=== PATIENT | male | born 1995 | race Caucasian/White ===

== ENCOUNTER 2016-06-13 20:13 | Inpatient (IN) | payer BC ==
[~2016-06-13] VITALS: Ht 170.2 cm; Wt 55.8 kg
[~2016-06-13 20:13] MED LIST: Alfentanil 2ml Inj ONE; Dexamethasone 4mg/ml vial ONE; Glycopyrrolate 0.2mg/ml 1ml Vial ONE; LR 1000ml ONE; Lidocaine 1% MPF 10mg/ml 5ml ONE; Midazolam 2mg/2ml Inj ONE; NS Irrig 1000ml ONE; Neostigmine 1mg/ml 10ml Inj ONE; Propofol 10mg/ml 20ml IV ONE; Sterile Water Irrig 1000ml IRRIG ONE; Zemuron 50mg/5ml Inj IV ONE
[2016-06-13] MEDS ORDERED: NKM (20:35)
[2016-06-13] MEDS ORDERED: Morphine Sulfate 4mg/ml Inj IVP ONE (21:00)
[2016-06-13] MEDS ORDERED: Ampicillin/Sulbactam Sod 3 GM in NS 110 ML IVPB ONE (21:00)
[2016-06-13] MEDS ORDERED: Unasyn 3gm Inj ONE (21:23)
[2016-06-13 21:38] LABS: APPEARANCE,URINE CLEAR; BASOPHILS % (AUTO) 0.5 % (0.0-2.0); EOSINOPHILS % (AUTO) 0.1 % (0.0-3.0); KETONES,URINE NEGATIVE (NEGATIVE); LEUKOCYTE ESTERASE ,URINE 1+ (NEGATIVE); LYMPHOCYTES % (AUTO) 9.8 % (20.0-45.0); MEAN CORPUSCULAR HEMOGLOBIN 31.6 PG (27.0-31.0); MEAN CORPUSCULAR HGB CONC 35.4 G/DL (32.0-36.0); MEAN CORPUSCULAR VOLUME 89 FL (80-99); MEAN PLATELET VOLUME 7.9 FL (6.5-10.1); MONOCYTES % (AUTO) 5.7 % (1.0-10.0); NEUTROPHILS % (AUTO) 83.9 % (45.0-75.0); NITRITE,URINE NEGATIVE (NEGATIVE); PH,URINE 6 (4.5-8.0); PLATELET COUNT 206 K/UL (150-450); PROTEIN,URINE NEGATIVE (NEGATIVE); RED BLOOD COUNT 5.65 M/UL (4.70-6.10); RED CELL DISTRIBUTION WIDTH 10.5 % (11.6-14.8); UROBILINOGEN,URINE NORMAL MG/DL (0.0-1.0); WHITE BLOOD COUNT 13.6 K/UL (4.8-10.8)
[2016-06-13 21:48] LABS: BACTERIA,URINE FEW /HPF; RBC,URINE 0-2 /HPF (0 - 0); WBC,URINE 0-2 /HPF (0 - 0)
[2016-06-13 21:50] LABS: INR 1.1 (0.9-1.1); PROTHROMBIN TIME 10.7 SEC (9.30-11.50)
[2016-06-13 21:58] LABS: ALANINE AMINOTRANSFERASE 18 U/L (3-41); ALBUMIN/GLOBULIN RATIO 1.7 (1.0-2.7); ANION GAP 18 (5-15); ASPARTATE AMINO TRANSFERASE 43 U/L (5-40); CALCIUM 9.7 mg/dL (8.6-10.2); CARBON DIOXIDE 24 mEQ/L (20-30); CHLORIDE 97 mEQ/L (98-107); CREATININE 1.1 mg/dL (0.7-1.2); GLOMERULAR FILTRATION RATE > 60 mL/min (>60); HEMOLYSIS 10; LIPASE 19 U/L (< 60); SODIUM 139 mEQ/L (135-145); TOTAL PROTEIN 8.1 g/dL (6.6-8.7)
[2016-06-13 22:18] LABS: BILIRUBIN,DIRECT 0.3 mg/dL (0.1-0.3)
--- NOTE | 2016-06-13 22:43 | Emergency Room Report ---
History of Present Illness General Chief Complaint: Abdominal Pain Source: Patient Present Illness HPI Patient is a 21-year-old male presented after increased abdominal pain for the past few days. The patient initially had pain to the periumbilical area which subsequently migrated to his right lower quadrant. Patient had been having constant symptoms which are worse with movements and deep breath. The patient denied any head fever. He had not been having vomiting or diarrhea. Pain had subsequently worsened and was severe in nature. Allergies: Coded Allergies: Cultivated Oat Pollen (Unverified Allergy, Unknown, 06/13/16) Uncoded Allergies: POLLENS (Allergy, Unknown, 06/13/16) Patient History Past Medical History: see triage record Reviewed Nursing Documentation: PMH: Agreed, PSxH: Agreed Nursing Documentation-PMH Hx Asthma: Yes Review of Systems All Other Systems: negative except mentioned in HPI Physical Exam Vital Signs Date Time Temp Pulse Resp B/P Pulse Ox O2 Delivery O2 Flow Rate FiO2 06/13/16 20:30 99.0 91 16 115/71 99 Room Air Sp02 EP Interpretation: reviewed, normal General Appearance: normal inspection, alert, moderate distress Head: atraumatic ENT: normal ENT inspection, hearing grossly normal, normal voice Neck: normal inspection, full range of motion, supple, no bony tend Respiratory: normal inspection, lungs clear, normal breath sounds, no respiratory distress, no retraction, no wheezing Cardiovascular #1: regular rate, rhythm, no edema Gastrointestinal: no guarding, no hernia, guarding, rebound, tenderness Genitourinary: no CVA tenderness Musculoskeletal: normal inspection, back normal, normal range of motion Neurologic: normal inspection, alert, oriented x3, responsive, supervisor records change III-XII nml as tested, speech normal Psychiatric: normal inspection, judgement/insight normal, mood/affect normal Skin: normal inspection, normal color, no rash Medical Decision Making Diagnostic Impression: Primary Impression: Abdominal pain Additional Impression: Appendicitis ER Course Patient presented for abdominal pain. Differential diagnoses included ischemic bowel, appendicitis, perforated viscus, abdominal aortic aneurysm, inferior myocardial infarction, viral gastroenteritis Because of complexity of patient's case laboratory testing and imaging studies were ordered. I laboratory testing was notable for elevated white blood count. Patient's exam is consistent with surgical abdomen. was contacted for surgical management is on his contacted for inpatient admission. Patient was given IV Unasyn and as well as IV fluids. The patient is also noted to have elevation of his bilirubin. Per mother there is a family history of Gilbert's disease and this may be related to this elevation. Labs Test 06/13/16 21:17 White Blood Count 13.6 K/UL (4.8-10.8) Red Blood Count 5.65 M/UL (4.70-6.10) Hemoglobin 17.8 G/DL (14.2-18.0) Hematocrit 50.3 % (42.0-52.0) Mean Corpuscular Volume 89 FL (80-99) Mean Corpuscular Hemoglobin 31.6 PG (27.0-31.0) Mean Corpuscular Hemoglobin Concent 35.4 G/DL (32.0-36.0) Red Cell Distribution Width 10.5 % (11.6-14.8) Platelet Count 206 K/UL (150-450) Mean Platelet Volume 7.9 FL (6.5-10.1) Neutrophils (%) (Auto) 83.9 % (45.0-75.0) Lymphocytes (%) (Auto) 9.8 % (20.0-45.0) Monocytes (%) (Auto) 5.7 % (1.0-10.0) Eosinophils (%) (Auto) 0.1 % (0.0-3.0) Basophils (%) (Auto) 0.5 % (0.0-2.0) Prothrombin Time 10.7 SEC (9.30-11.50) Prothromb Time International Ratio 1.1 (0.9-1.1) Activated Partial Thromboplast Time 29 SEC (23-33) Urine Color Pale yellow Urine Appearance Clear Urine pH 6 (4.5-8.0) Urine Specific [place] 1.015 (1.005-1.035) Urine Protein Negative (NEGATIVE) Urine Glucose (UA) Negative (NEGATIVE) Urine Ketones Negative (NEGATIVE) Urine Occult Blood 1+ (NEGATIVE) Urine Nitrite Negative (NEGATIVE) Urine Bilirubin Negative (NEGATIVE) Urine Urobilinogen Normal MG/DL (0.0-1.0) Urine Leukocyte Esterase 1+ (NEGATIVE) Urine RBC 0-2 /HPF (0 - 0) Urine WBC 0-2 /HPF (0 - 0) Urine Squamous Epithelial Cells None /LPF (NONE/OCC) Urine Bacteria Few /HPF (NONE) Sodium Level 139 mEQ/L (135-145) Potassium Level 4.0 mEQ/L (3.4-4.9) Chloride Level 97 mEQ/L (98-107) Carbon Dioxide Level 24 mEQ/L (20-30) Anion Gap 18 (5-15) Blood Urea Nitrogen 17 mg/dL (7-23) Creatinine 1.1 mg/dL (0.7-1.2) Estimat Glomerular Filtration Rate > 60 mL/min (>60) Glucose Level 104 mg/dL (74-106) Calcium Level 9.7 mg/dL (8.6-10.2) Total Bilirubin 3.2 mg/dL (0.0-1.2) Direct Bilirubin 0.3 mg/dL (0.1-0.3) Aspartate Amino Transf (AST/SGOT) 43 U/L (5-40) Alanine Aminotransferase (ALT/SGPT) 18 U/L (3-41) Alkaline Phosphatase 81 U/L (40-129) Total Protein 8.1 g/dL (6.6-8.7) Albumin 5.1 g/dL (3.5-5.2) Globulin 3.0 g/dL Albumin/Globulin Ratio 1.7 (1.0-2.7) Lipase 19 U/L (< 60) Last Vital Signs Date Time Temp Pulse Resp B/P Pulse Ox O2 Delivery O2 Flow Rate FiO2 06/13/16 20:30 99.0 91 16 115/71 99 Room Air Status: unchanged Disposition: ADMITTED INPATIENT Condition: Serious Referrals: NON PHYSICIAN (PCP) Norman Deleon Jun 13, 2016 22:43
[2016-06-13 22:55] VITALS: BP 118/74
--- NOTE | 2016-06-13 23:33 | Pre-Procedure Note/Attestation ---
Pre-Procedure Note/Attestation Complete Prior to Procedure Planned Procedure: not applicable Procedure Narrative: Laparoscopic appendectomy possible open appendectomy Indications for Procedure Pre-Operative Diagnosis: acute appendicitis Attestation I attest that I discussed the nature of the procedure; its benefits; risks and complications; and alternatives (and the risks and benefits of such alternatives ), prior to the procedure, with the patient (or the patient's legal veterans contact representative). I attest that, if there was a reasonable possibility of needing a blood transfusion, the patient (or the patient's legal veterans contact representative) was given the [facility] standardized written summary, pursuant to the Wade Trey Blood Safety Act ([place] Health and Safety Code # 1645, as amended). I attest that I re-evaluated the patient just prior to the surgery and that there has been no change in the patient's H&P, except as documented below: FRANCISCO JAVIER REGAN Jun 13, 2016 23:33
[2016-06-13] MEDS ORDERED: Bupivacaine 0.25% Inj 30ml INJ ONE ×2 (23:38→23:46)
[2016-06-13] MEDS ORDERED: Albuterol ud Inhalation ONE (23:40)
[2016-06-13] MEDS ORDERED: Bupivacaine w/Epi 0.25% 30ml Vial INJ ONE (23:46)
[2016-06-13] MEDS ORDERED: Bacitracin 50000 Units Vial ONE (23:46)
[2016-06-13] MEDS ORDERED: fentaNYL 100 mcg/2 mL IV ONE (23:59)
[2016-06-14] VITALS (19 sets, daily range): BP systolic 98–129; BP diastolic 34–78
[2016-06-14] MEDS ORDERED: LR 1000ml 1,000 ML IVLG SCH (00:02)
--- NOTE | 2016-06-14 00:02 | Anethesia Preoperative Eval ---
Anesthesia Pre-op PMH/ROS General Date of Evaluation: Jun 14, 2016 Time of Evaluation: 00:01 Anesthesiologist: Aaron ASA Score: ASA 1 - Emergency Mallampati Score Class I : Soft palate, uvula, fauces, pillars visible Class II: Soft palate, uvula, fauces visible Class III: Soft palate, base of uvula visible Class IV: Only hard plate visible Mallampati Classification: Class I Surgeon: John Diagnosis: Acute Appendicitis Surgical Procedure: Laparoscopic Appendectomy Anesthesia History: none Family History: no anesthesia problems Allergies: Coded Allergies: Cultivated Oat Pollen (Unverified Allergy, Unknown, 06/13/16) Uncoded Allergies: POLLENS (Allergy, Unknown, 06/13/16) Medications: see eMAR Anesthesia Pre-op Phys. Exam Physician Exam Last Vital Signs Date Time Temp Pulse Resp B/P Pulse Ox O2 Delivery O2 Flow Rate FiO2 06/13/16 23:08 98.9 88 15 118/74 98 Room Air Constitutional: NAD Neurologic: CN 2-12 intact Cardiovascular: RRR Respiratory: CTA Gastrointestinal: S/NT/ND Airway Exam Mallampati Score: Class I MO: full ROM: full Teeth: intact Anesthesia Pre-op A/P Labs Hematology Test 06/13/16 21:17 White Blood Count 13.6 K/UL (4.8-10.8) H Red Blood Count 5.65 M/UL (4.70-6.10) Hemoglobin 17.8 G/DL (14.2-18.0) Hematocrit 50.3 % (42.0-52.0) Mean Corpuscular Volume 89 FL (80-99) Mean Corpuscular Hemoglobin 31.6 PG (27.0-31.0) H Mean Corpuscular Hemoglobin Concent 35.4 G/DL (32.0-36.0) Red Cell Distribution Width 10.5 % (11.6-14.8) L Platelet Count 206 K/UL (150-450) Mean Platelet Volume 7.9 FL (6.5-10.1) Neutrophils (%) (Auto) 83.9 % (45.0-75.0) H Lymphocytes (%) (Auto) 9.8 % (20.0-45.0) L Monocytes (%) (Auto) 5.7 % (1.0-10.0) Eosinophils (%) (Auto) 0.1 % (0.0-3.0) Basophils (%) (Auto) 0.5 % (0.0-2.0) Coagulation Test 06/13/16 21:17 Prothrombin Time 10.7 SEC (9.30-11.50) Prothromb Time International Ratio 1.1 (0.9-1.1) Activated Partial Thromboplast Time 29 SEC (23-33) Chemistry Test 06/13/16 21:17 Sodium Level 139 mEQ/L (135-145) Potassium Level 4.0 mEQ/L (3.4-4.9) Chloride Level 97 mEQ/L (98-107) L Carbon Dioxide Level 24 mEQ/L (20-30) Anion Gap 18 (5-15) H Blood Urea Nitrogen 17 mg/dL (7-23) Creatinine 1.1 mg/dL (0.7-1.2) Estimat Glomerular Filtration Rate > 60 mL/min (>60) Glucose Level 104 mg/dL (74-106) Calcium Level 9.7 mg/dL (8.6-10.2) Total Bilirubin 3.2 mg/dL (0.0-1.2) H Direct Bilirubin 0.3 mg/dL (0.1-0.3) Aspartate Amino Transf (AST/SGOT) 43 U/L (5-40) H Alanine Aminotransferase (ALT/SGPT) 18 U/L (3-41) Alkaline Phosphatase 81 U/L (40-129) Total Protein 8.1 g/dL (6.6-8.7) Albumin 5.1 g/dL (3.5-5.2) Globulin 3.0 g/dL Albumin/Globulin Ratio 1.7 (1.0-2.7) Lipase 19 U/L (< 60) Risk Assessment & Plan Assessment: 1E Plan: GA, Glidescope, BIS Status Change Before Surgery: No Pre-Antibiotics Dru Gram Ancef IV Given Within 1 Hr of Incision: Yes Time Given: 00:16 Jim Walker MD Jun 14, 2016 00:02
--- NOTE | 2016-06-14 00:05 | Immediate Post-Op Evaluation ---
Immediate Post-Op Evalulation Immediate Post-Op Evalulation Procedure: Laparoscopic Appendectomy Date of Evaluation: Jun 14, 2016 Time of Evaluation: 01:39 IV Fluids: 900 LR Blood Products: 0 Estimated Blood Loss: 7 Urinary Output: 200 Blood Pressure Systolic: 127 Blood Pressure Diastolic: 51 Pulse Rate: 72 Respiratory Rate: 16 O2 Sat by Pulse Oximetry: 96 Temperature (Fahrenheit): 98.6 Pain Score (1-10): 2 Nausea: No Vomiting: No Complications 0 Patient Status: awake, reacts, patent, extubated, none Hydration Status: adequate Dru Gram Ancef iv Given Within 1 Hr of Incision: Yes Time Given: 00:16 Jim Walker MD Jun 14, 2016 00:05
--- NOTE | 2016-06-14 00:05 | 48 Hour Post Anesthesia Eval ---
Post Anesthesia Evaluation Procedure: Laparoscopic Appendectomy Date of Evaluation: Jun 14, 2016 Time of Evaluation: 03:16 Blood Pressure Systolic: 116 0: 54 Pulse Rate: 76 Respiratory Rate: 18 Temperature (Fahrenheit): 98.6 O2 Sat by Pulse Oximetry: 100 Airway: patent Nausea: No Vomiting: No Pain Intensity: 2 Hydration Status: adequate Cardiopulmonary Status: Stable Mental Status/LOC: patient returned to baseline Follow-up Care/Observations: 0 Post-Anesthesia Complications: 0 Follow-up care needed: N/A Jim Walker MD Jun 14, 2016 00:05
[2016-06-14] MEDS ORDERED: Ketorolac 60mg Inj IV PRN (00:15)
[2016-06-14] MEDS ORDERED: DiphenhydrAMINE 50mg/ml Inj IVP PRN (00:15)
[2016-06-14] MEDS ORDERED: Norco 5mg/325mg tab ORAL PRN (00:15)
[2016-06-14] MEDS ORDERED: LORazepam Inj 2mg/ml 1ml IV PRN (00:15)
[2016-06-14] MEDS ORDERED: Midazolam 2mg/2ml Inj IVP PRN (00:15)
[2016-06-14] MEDS ORDERED: Atropine Inj 1mg/10ml Syr IV PRN (00:15)
[2016-06-14] MEDS ORDERED: Labetalol 5mg/ml 20ml vial IV PRN (00:15)
[2016-06-14] MEDS ORDERED: Metoclopramide 10mg/2ml Inj IVP PRN (00:15)
[2016-06-14] MEDS ORDERED: Norco 7.5mg/325mg tab ORAL PRN (00:15)
[2016-06-14] MEDS ORDERED: Hydromorphone 0.5mg/0.5ml inj IVP PRN (00:15)
[2016-06-14] MEDS ORDERED: Ketorolac 30mg Inj IV PRN (00:15)
[2016-06-14] MEDS ORDERED: Oxycodone/Acetaminophen 5-325 ORAL PRN (00:15)
[2016-06-14] MEDS ORDERED: Meperidine 25mg/ml Inj IV PRN (00:15)
[2016-06-14] MEDS ORDERED: NS Irrig 1000ml IRRIG ONE (00:35)
[2016-06-14] MEDS ORDERED: D5 1/2NS w/KCl 20mEq 1,000 ML IV SCH (01:18)
--- NOTE | 2016-06-14 01:18 | Brief Operative Note ---
Immediate Post Operative Note Operative Note Pre-op Diagnosis: acute appendicitis Post-op Diagnosis: same as pre-op Findings: consistent w/pre-op dx studies Surgeon: Mj Flight Engineer Manager: none Anesthesiologist: Dr. Renner Anesthesia: general Specimen: yes Complications: none Condition: stable Estimated Blood Loss: minimal Drains: none Implant(s) used?: No FRANCISCO JAVIER REGAN Jun 14, 2016 01:18
[2016-06-14] MEDS ORDERED: Acetaminophen 650 MG SUPP RECTAL PRN ×2 (01:30→11:20)
[2016-06-14] MEDS ORDERED: HYDROmorphone 1mg/ml Carpuject IVP PRN ×2 (01:30→11:20)
[2016-06-14] MEDS: fentaNYL 100 mcg/2 mL IV PRN ×2 (02:00→02:30)
[2016-06-14] MEDS ORDERED: Albuterol ud Inhalation HHN SCH (02:00)
[2016-06-14] MEDS ORDERED: Zosyn 3.375gm inj ONE (02:18)
[2016-06-14] MEDS ORDERED: Metoclopramide 10mg/2ml Inj IM SCH (06:00)
[2016-06-14] MEDS ORDERED: Piperacillin/Tazobactam 3.375 GM in D5W 110 ML IVPB SCH (06:00)
[2016-06-14 07:59] LABS: MEAN CORPUSCULAR HEMOGLOBIN 31.8 PG (27.0-31.0); MEAN CORPUSCULAR HGB CONC 35.7 G/DL (32.0-36.0); MEAN CORPUSCULAR VOLUME 89 FL (80-99); MEAN PLATELET VOLUME 8.2 FL (6.5-10.1); PLATELET COUNT 195 K/UL (150-450); RED BLOOD COUNT 5.25 M/UL (4.70-6.10); RED CELL DISTRIBUTION WIDTH 10.6 % (11.6-14.8)
--- NOTE | 2016-06-14 08:18 | Consultation ---
DATE OF CONSULTATION: 06/13/2016 PREOPERATIVE CONSULTATION: REQUESTING PHYSICIAN: Bebeto Lopez M.D. REASON FOR CONSULTATION: Abdominal pain. HISTORY OF PRESENT ILLNESS: This is a 21-year-old male, who presented to emergency room complaining of abdominal pain since yesterday noon. He stated the pain initially was all over the abdomen, but later it localized at right lower quadrant. This pain has been associated with nausea, but no vomiting. He denies any fever, cough, dysuria, or frequency. One year ago, he had abdominal pain, which was diagnosed with some kind of bowel obstruction. PAST MEDICAL HISTORY: He denies allergies, diabetes, hypertension, cardiac, and renal diseases. He had a history of asthma. PAST SURGICAL HISTORY: None. MEDICATIONS: Inhaler. SOCIAL HISTORY: This is a 21-year-old male, single without children. He is a student. Denies smoking and drinks occasionally. REVIEW OF SYSTEMS: Noncontributory. PHYSICAL EXAMINATION: GENERAL: The patient appeared to be a well-developed, well-nourished, 21-year-old male, lying on the gurney, complaining of abdominal pain. HEENT: Head is normocephalic and atraumatic. Eyes, pupils are equal, round, and reactive to light. Mouth is clear. NECK: There is no palpable thyromegaly or adenopathy. CHEST: Clear to auscultation and percussion. HEART: There is no gallop or murmur. He has a split of the S2. ABDOMEN: Soft and flat with tenderness, rebound tenderness, and guarding at right lower quadrant. There is no palpable organomegaly. Bowel sounds are audible. GENITAL: Normal. EXTREMITIES: Normal. LABORATORY DATA: CBC has shown a WBC of 13,600 with the left shift. ASSESSMENT: Acute appendicitis. PLAN: After rehydration, the patient will undergo a laparoscopy appendectomy and possible open appendectomy. The risks and benefits have been explained. He understood and will leonel the consent form. Bebeto Lopez M.D. DR: BRIE JOB#: [id number] CC:
[2016-06-14 08:23] LABS: CHOLESTEROL/HDL RATIO 2.6 (3.3-4.4); TROPONIN I < 0.30 ng/mL (<=0.30)
[2016-06-14 08:26] LABS: ANION GAP 17 (5-15); CALCIUM 8.8 mg/dL (8.6-10.2); CARBON DIOXIDE 23 mEQ/L (20-30); CHLORIDE 97 mEQ/L (98-107); CREATININE 1.2 mg/dL (0.7-1.2); GLOMERULAR FILTRATION RATE > 60 mL/min (>60); HEMOLYSIS 11; SODIUM 137 mEQ/L (135-145)
[2016-06-14 08:27] LABS: THYROID STIMULATING HORMONE 1.36 uIU/mL (0.300-4.500)
[2016-06-14 08:39] LABS: HEMOGLOBIN A1C 4.8 % (< 6.0)
[2016-06-14] MEDS ORDERED: Pantoprazole Inj IVP SCH (09:00)
[2016-06-14] MEDS ORDERED: Albuterol ud Inhalation HHN PRN (09:00)
--- NOTE | 2016-06-14 09:07 | Consultation ---
History of Present Illness General Date patient seen: Jun 14, 2016 Time patient seen: 08:30 Chief Complaint: Abdominal Pain Referring physician: dr Patterson Reason for Consultation: hypoxemia Present Illness HPI 21 y/old male presented to ED with acute abdominal oarntes CT A/P done and patient was subsequently diagnosed with acute appendicitis surgeon seen the patient on urgent basis and patient undergone lap appy last night, 06/13 this am patient developed episode of hypoxemia, 88% on RA and below placed on supplemental oxygen was coughing, phlegm f blood tinged no fever, + leukocytosis no tachycardia, no tachypnea + diaphoresis last night denies recent weight loss, perspirations, had respiratory problems for few months, was diagnosed with mild asthma, apparently of allergic component under care of dr Benavides ( [facility]) and currently undergoing allergy demonetization shots reports wheezing after exercise, denies wheezing now was given Breo to use, not using regularly denies chest pain, palpitations, dizziness denies recent traveling denies recent contacts with sick people recent PPD few years ago negative Allergies: Coded Allergies: Cultivated Oat Pollen (Unverified Allergy, Unknown, 06/13/16) Uncoded Allergies: POLLENS (Allergy, Unknown, 06/13/16) Medication History Scheduled No Known Medications* (NKM - No Known Medications*), 0 ., (Reported) Patient History Healthcare decision maker Sabine Huynh Resuscitation status Full Code Advanced Directive on File Review of Systems Constitutional: Reports: no symptoms Eye: Reports: no symptoms ENT: Reports: no symptoms Respiratory: Reports: see HPI Cardiovascular: Reports: no symptoms Gastrointestinal: Reports: see HPI Genitourinary: Reports: no symptoms Musculoskeletal: Reports: no symptoms Skin: Reports: no symptoms Psychiatric: Reports: no symptoms Neurological: Reports: other Endocrine: Reports: no symptoms Hematologic/Lymphatic: Reports: no symptoms Physical Exam General Appearance: other - A/A/O x 3 thin young male in mild distress Lines, tubes and drains: peripheral HEENT: normocephalic, atraumatic, anicteric, other - VM on Neck: non-tender, supple, normal inspection Respiratory/Chest: chest wall non-tender, respiratory distress - mild Cardiovascular/Chest: normal rate, regular rhythm, no JVD Abdomen: normal bowel sounds, soft - mild tenderness on palpation aroudn surgical sites Extremities: normal range of motion, non-tender, no calf tenderness Skin Exam: warm/dry Neurologic: testing tech II-XII grossly normal, no motor/sensory deficits, alert, oriented x 3, responsive Musculoskeletal: normal muscle bulk Last 24 Hour Vital Signs Date Time Temp Pulse Resp B/P Pulse Ox O2 Delivery O2 Flow Rate FiO2 06/14/16 06:23 97.4 18 18 114/54 94 Room Air 06/14/16 06:09 Venturi Mask 8.0 40 06/14/16 06:08 93 Venturi Mask 8.0 40 06/14/16 05:44 97.7 97 21 107/59 96 Nasal Cannula 5.0 06/14/16 05:00 Nasal Cannula 6.0 06/14/16 04:57 91 18 97 Nasal Cannula 6.0 06/14/16 04:51 81 18 94 Nasal Cannula 6.0 06/14/16 04:48 91 18 Nasal Cannula 6.0 06/14/16 04:00 98.4 90 19 110/70 95 Nasal Cannula 06/14/16 04:00 93 Nasal Cannula 6.0 06/14/16 03:35 98.2 94 18 103/72 90 Nasal Cannula 06/14/16 03:05 85 22 110/50 96 Nasal Cannula 3.0 06/14/16 03:04 98.8 06/14/16 03:04 98.8 06/14/16 02:55 98.8 88 23 106/52 96 Nasal Cannula 3.0 06/14/16 02:45 92 26 108/45 95 Nasal Cannula 3.0 06/14/16 02:30 122 35 123/56 90 Simple Mask 15.0 06/14/16 02:10 100 33 129/59 98 Simple Mask 15.0 06/14/16 02:00 84 33 122/57 98 Simple Mask 15.0 06/14/16 01:50 90 31 120/46 94 Simple Mask 15.0 06/14/16 01:35 106 32 101/47 87 Simple Mask 15.0 06/14/16 01:32 76 18 100 06/14/16 01:31 72 16 96 06/14/16 01:28 98.4 103 36 126/51 85 Simple Mask 15.0 06/14/16 00:05 98.9 85 15 123/78 98 Room Air 06/13/16 23:08 98.9 88 15 118/74 98 Room Air 06/13/16 22:55 98.9 88 15 118/74 98 Room Air 06/13/16 22:00 98.9 06/13/16 20:30 99.0 91 16 115/71 99 Room Air Intake and Output 06/13/16 06/14/16 19:00 07:00 Intake Total 210 ml Balance 210 ml Intake IV Total 210 ml Laboratory Tests Test 06/13/16 21:17 06/14/16 07:20 White Blood Count 13.6 K/UL (4.8-10.8) H 13.0 K/UL (4.8-10.8) H Red Blood Count 5.65 M/UL (4.70-6.10) 5.25 M/UL (4.70-6.10) Hemoglobin 17.8 G/DL (14.2-18.0) 16.7 G/DL (14.2-18.0) Hematocrit 50.3 % (42.0-52.0) 46.8 % (42.0-52.0) Mean Corpuscular Volume 89 FL (80-99) 89 FL (80-99) Mean Corpuscular Hemoglobin 31.6 PG (27.0-31.0) H 31.8 PG (27.0-31.0) H Mean Corpuscular Hemoglobin Concent 35.4 G/DL (32.0-36.0) 35.7 G/DL (32.0-36.0) Red Cell Distribution Width 10.5 % (11.6-14.8) L 10.6 % (11.6-14.8) L Platelet Count 206 K/UL (150-450) 195 K/UL (150-450) Mean Platelet Volume 7.9 FL (6.5-10.1) 8.2 FL (6.5-10.1) Neutrophils (%) (Auto) 83.9 % (45.0-75.0) H % (45.0-75.0) Lymphocytes (%) (Auto) 9.8 % (20.0-45.0) L % (20.0-45.0) Monocytes (%) (Auto) 5.7 % (1.0-10.0) % (1.0-10.0) Eosinophils (%) (Auto) 0.1 % (0.0-3.0) % (0.0-3.0) Basophils (%) (Auto) 0.5 % (0.0-2.0) % (0.0-2.0) Prothrombin Time 10.7 SEC (9.30-11.50) Prothromb Time International Ratio 1.1 (0.9-1.1) Activated Partial Thromboplast Time 29 SEC (23-33) Urine Color Pale yellow Urine Appearance Clear Urine pH 6 (4.5-8.0) Urine Specific [place] 1.015 (1.005-1.035) Urine Protein Negative (NEGATIVE) Urine Glucose (UA) Negative (NEGATIVE) Urine Ketones Negative (NEGATIVE) Urine Occult Blood 1+ (NEGATIVE) H Urine Nitrite Negative (NEGATIVE) Urine Bilirubin Negative (NEGATIVE) Urine Urobilinogen Normal MG/DL (0.0-1.0) Urine Leukocyte Esterase 1+ (NEGATIVE) H Urine RBC 0-2 /HPF (0 - 0) H Urine WBC 0-2 /HPF (0 - 0) Urine Squamous Epithelial Cells None /LPF (NONE/OCC) Urine Bacteria Few /HPF (NONE) Sodium Level 139 mEQ/L (135-145) 137 mEQ/L (135-145) Potassium Level 4.0 mEQ/L (3.4-4.9) 5.0 mEQ/L (3.4-4.9) H Chloride Level 97 mEQ/L (98-107) L 97 mEQ/L (98-107) L Carbon Dioxide Level 24 mEQ/L (20-30) 23 mEQ/L (20-30) Anion Gap 18 (5-15) H 17 (5-15) H Blood Urea Nitrogen 17 mg/dL (7-23) 18 mg/dL (7-23) Creatinine 1.1 mg/dL (0.7-1.2) 1.2 mg/dL (0.7-1.2) Estimat Glomerular Filtration Rate > 60 mL/min (>60) > 60 mL/min (>60) Glucose Level 104 mg/dL (74-106) 184 mg/dL (74-106) H Calcium Level 9.7 mg/dL (8.6-10.2) 8.8 mg/dL (8.6-10.2) Total Bilirubin 3.2 mg/dL (0.0-1.2) H Direct Bilirubin 0.3 mg/dL (0.1-0.3) Aspartate Amino Transf (AST/SGOT) 43 U/L (5-40) H Alanine Aminotransferase (ALT/SGPT) 18 U/L (3-41) Alkaline Phosphatase 81 U/L (40-129) Total Protein 8.1 g/dL (6.6-8.7) Albumin 5.1 g/dL (3.5-5.2) Globulin 3.0 g/dL Albumin/Globulin Ratio 1.7 (1.0-2.7) Lipase 19 U/L (< 60) Neutrophils % (Manual) Pending Lymphocytes % (Manual) Pending Platelet Estimate Pending Platelet Morphology Pending D-Dimer 3637 ng/mL (<500) H Hemoglobin A1c 4.8 % (< 6.0) Troponin I < 0.30 ng/mL (<=0.30) Triglycerides Level 44 mg/dL (< 150) Cholesterol Level 141 mg/dL (< 200) LDL Cholesterol 78 mg/dL (60-99) HDL Cholesterol 54 mg/dL (> 60) Cholesterol/HDL Ratio 2.6 (3.3-4.4) L Thyroid Stimulating Hormone (TSH) 1.360 uIU/mL (0.300-4.500) Height (Feet): 5 Height (Inches): 7.00 Weight (Pounds): 123 Medications Current Medications Medications (Trade) Dose Ordered Sig/Viannye Route PRN Reason Start Time Stop Time Status Last Admin Dose Admin Acetaminophen (Tylenol) 650 mg Q4H PRN RECTAL Mild Pain (Pain Scale 1-3) 06/14/16 01:30 07/14/16 01:29 Albuterol Sulfate (Proventil) 2.5 mg QID PRN HHN Shortness of Breath 06/14/16 09:00 06/19/16 08:59 06/14/16 04:48 Dextrose/ Electrolytes 1,000 ml @ 100 mls/hr Q10H IV 06/14/16 01:18 07/14/16 01:17 06/14/16 04:28 Hydromorphone HCl (Dilaudid) 1 mg Q4H PRN IVP For Pain 06/14/16 01:30 06/21/16 01:29 Pantoprazole (Protonix) 40 mg DAILY IVP 06/14/16 09:00 07/14/16 08:59 Piperacillin Sod/ Tazobactam Sod/ Dextrose (Zosyn/D5W) 110 ml @ 27.5 mls/hr EVERY 8 HOURS IVPB 06/14/16 06:00 06/19/16 05:59 06/14/16 05:04 Assessment/Plan Assessment/Plan ASSESSMENT hypoxemia SOB r/o PE asthma allergies s/p lap appy 06/13 postop pain PLAN OF CARE transfer to tele stat CTA chest r/o PE stat Duplex BLE check D dimer O 2 HHN, keep sat above 92% steroids antitussive prn IS at the bedside depending on the results of CTA further recommendation will be provided surgery follows, pain management, ambulate, OOB as tolerated case discussed and evaluated by supervising physician Srini Marques),Oralia LEWIS Jun 14, 2016 09:07
--- NOTE | 2016-06-14 09:13 | Diagnostic Imaging Report ---
Indication: Right lower quadrant pain Technique: CT scan of the abdomen and pelvis utilizing automated exposure control with intravenous contrast. Axial, sagittal and coronal images were obtained. CT dose: Total DLP 627 mGycm; CTDI vol 12.8 mGy Comparison: None Findings: Evaluation of the bowel is limited without oral contrast material. Lung bases are clear. Liver, adrenal glands, spleen, pancreas, gallbladder and kidneys are unremarkable. The appendix is enlarged measuring 13 mm with periappendiceal stranding consistent with acute appendicitis. There is no free intraperitoneal air or abscess. The small bowel loops are normal in caliber. Impression: Prominent caliber appendix measuring 1.3 cm with periappendiceal stranding consistent with acute appendicitis. No abscess or free air. Findings concordant with the preliminary [facility] report. The CT scanner at [facility] is accredited by the [employer] and the scans are performed using protocols designed to limit radiation exposure to as low as reasonably achievable to attain images of sufficient resolution adequate for diagnostic evaluation.
--- NOTE | 2016-06-14 09:21 | History & Physical ---
History and Physical History & Physicial Patient is seen and examined. Dictation completed Jerad Patterson MD Jun 14, 2016 09:21
--- NOTE | 2016-06-14 09:27 | General Progress Note ---
Assessment/Plan Status: stable Assessment/Plan 1- Sepsis 2- Acute Hypoxemic Respiratory distress 3- Acute Appendicitis 4- Asthma-child magaña Plan: Stat Ct-PE protocol Stat Solumedrol 60 mg S/P surgery Subjective ROS Limited/Unobtainable: Yes Constitutional: Reports: no symptoms HEENT: Reports: no symptoms Cardiovascular: Reports: no symptoms Respiratory: Reports: shortness of breath Allergies: Coded Allergies: Cultivated Oat Pollen (Unverified Allergy, Unknown, 06/13/16) Uncoded Allergies: POLLENS (Allergy, Unknown, 06/13/16) Objective Last 24 Hour Vital Signs Date Time Temp Pulse Resp B/P Pulse Ox O2 Delivery O2 Flow Rate FiO2 06/14/16 06:23 97.4 18 18 114/54 94 Room Air 06/14/16 06:09 Venturi Mask 8.0 40 06/14/16 06:08 93 Venturi Mask 8.0 40 06/14/16 05:44 97.7 97 21 107/59 96 Nasal Cannula 5.0 06/14/16 05:00 Nasal Cannula 6.0 06/14/16 04:57 91 18 97 Nasal Cannula 6.0 06/14/16 04:51 81 18 94 Nasal Cannula 6.0 06/14/16 04:48 91 18 Nasal Cannula 6.0 06/14/16 04:00 98.4 90 19 110/70 95 Nasal Cannula 06/14/16 04:00 93 Nasal Cannula 6.0 06/14/16 03:35 98.2 94 18 103/72 90 Nasal Cannula 06/14/16 03:05 85 22 110/50 96 Nasal Cannula 3.0 06/14/16 03:04 98.8 06/14/16 03:04 98.8 06/14/16 02:55 98.8 88 23 106/52 96 Nasal Cannula 3.0 06/14/16 02:45 92 26 108/45 95 Nasal Cannula 3.0 06/14/16 02:30 122 35 123/56 90 Simple Mask 15.0 06/14/16 02:10 100 33 129/59 98 Simple Mask 15.0 06/14/16 02:00 84 33 122/57 98 Simple Mask 15.0 06/14/16 01:50 90 31 120/46 94 Simple Mask 15.0 06/14/16 01:35 106 32 101/47 87 Simple Mask 15.0 06/14/16 01:32 76 18 100 06/14/16 01:31 72 16 96 06/14/16 01:28 98.4 103 36 126/51 85 Simple Mask 15.0 06/14/16 00:05 98.9 85 15 123/78 98 Room Air 06/13/16 23:08 98.9 88 15 118/74 98 Room Air 06/13/16 22:55 98.9 88 15 118/74 98 Room Air 06/13/16 22:00 98.9 06/13/16 20:30 99.0 91 16 115/71 99 Room Air Intake and Output 06/13/16 06/14/16 19:00 07:00 Intake Total 210 ml Balance 210 ml Intake IV Total 210 ml Laboratory Tests 06/13/16 21:17: White Blood Count 13.6H, Red Blood Count 5.65, Hemoglobin 17.8, Hematocrit 50.3 , Mean Corpuscular Volume 89, Mean Corpuscular Hemoglobin 31.6H, Mean Corpuscular Hemoglobin Concent 35.4, Red Cell Distribution Width 10.5L, Platelet Count 206, Mean Platelet Volume 7.9, Neutrophils (%) (Auto) 83.9H, Lymphocytes (%) (Auto) 9.8L, Monocytes (%) (Auto) 5.7, Eosinophils (%) (Auto) 0.1, Basophils (%) (Auto) 0.5, Prothrombin Time 10.7, Prothromb Time International Ratio 1.1, Activated Partial Thromboplast Time 29, Urine Color Pale yellow, Urine Appearance Clear, Urine pH 6, Urine Specific [place] 1.015, Urine Protein Negative, Urine Glucose (UA) Negative, Urine Ketones Negative, Urine Occult Blood 1+H, Urine Nitrite Negative, Urine Bilirubin Negative, Urine Urobilinogen Normal, Urine Leukocyte Esterase 1+H, Urine RBC 0-2H, Urine WBC 0-2 , Urine Squamous Epithelial Cells None, Urine Bacteria Few, Sodium Level 139, Potassium Level 4.0, Chloride Level 97L, Carbon Dioxide Level 24, Anion Gap 18H , Blood Urea Nitrogen 17, Creatinine 1.1, Estimat Glomerular Filtration Rate > 60, Glucose Level 104, Calcium Level 9.7, Total Bilirubin 3.2H, Direct Bilirubin 0.3, Aspartate Amino Transf (AST/SGOT) 43H, Alanine Aminotransferase ( ALT/SGPT) 18, Alkaline Phosphatase 81, Total Protein 8.1, Albumin 5.1, Globulin 3.0, Albumin/Globulin Ratio 1.7, Lipase 19 06/14/16 07:20: White Blood Count 13.0H, Red Blood Count 5.25, Hemoglobin 16.7, Hematocrit 46.8 , Mean Corpuscular Volume 89, Mean Corpuscular Hemoglobin 31.8H, Mean Corpuscular Hemoglobin Concent 35.7, Red Cell Distribution Width 10.6L, Platelet Count 195, Mean Platelet Volume 8.2, Neutrophils (%) (Auto) , Lymphocytes (%) (Auto) , Monocytes (%) (Auto) , Eosinophils (%) (Auto) , Basophils (%) (Auto) , Sodium Level 137, Potassium Level 5.0H, Chloride Level 97L, Carbon Dioxide Level 23, Anion Gap 17H, Blood Urea Nitrogen 18, Creatinine 1.2, Estimat Glomerular Filtration Rate > 60, Glucose Level 184H, Calcium Level 8.8, Neutrophils % (Manual) [Pending], Lymphocytes % (Manual) [Pending], Platelet Estimate [Pending], Platelet Morphology [Pending], D-Dimer 3637H, Hemoglobin A1c 4.8, Troponin I < 0.30, Triglycerides Level 44, Cholesterol Level 141, LDL Cholesterol 78, HDL Cholesterol 54, Cholesterol/HDL Ratio 2.6L, Thyroid Stimulating Hormone (TSH) 1.360 Height (Feet): 5 Height (Inches): 7.00 Weight (Pounds): 123 General Appearance: mild distress EENT: PERRL/EOMI Neck: supple Cardiovascular: tachycardia Respiratory/Chest: lungs clear Abdomen: soft, other - post surgery. Abdominen is soft Extremities: non-tender Neurologic: jack setter II-XII grossly normal Jerad Patterson MD Jun 14, 2016 09:27
[2016-06-14] MEDS ORDERED: Solu-MEDROL 125mg Inj IVP ONE (09:30)
[2016-06-14] MEDS ORDERED: Heparin 5000 units/ml inj SUBQ SCH (10:00)
--- NOTE | 2016-06-14 10:02 | 48 Hour Post Anesthesia Eval ---
Post Anesthesia Evaluation Procedure: Laparoscopic Appendectomy Date of Evaluation: Jun 14, 2016 Time of Evaluation: 09:57 Blood Pressure Systolic: 114 0: 54 Pulse Rate: 88 Respiratory Rate: 18 - Venturi mask Temperature (Fahrenheit): 97.4 O2 Sat by Pulse Oximetry: 97 Airway: patent Nausea: No Vomiting: No Hydration Status: adequate Cardiopulmonary Status: O2 saturation = 97% on 60% Face Mask. To be transferred to [address] [place] [address] for closer observation. Mental Status/LOC: patient returned to baseline Follow-up Care/Observations: Coughing has subsided. Now pt tired and hungry. Post-Anesthesia Complications: 0 Follow-up care needed: N/A Jim Walker MD Jun 14, 2016 10:02
[2016-06-14 10:41] LABS: BAND NEUTROPHILS % (MANUAL) 3 % (0-8); BASOPHILS % (MANUAL) 0 % (0-2); EOSINOPHILS % (MANUAL) 0 % (0-3); LYMPHOCYTES % (MANUAL) 7 % (20-45); NEUTROPHILS % (MANUAL) 80 % (45-75); PLATELET ESTIMATE ADEQUATE; TOTAL CELLS COUNTED 100
[2016-06-14 10:42] LABS: PLATELET MORPHOLOGY NORMAL
[2016-06-14] MEDS: D5 1/2NS w/KCl 20mEq 1,000 ML IV SCH ×2 (11:30→21:14)
--- NOTE | 2016-06-14 12:08 | General Surgery Progress Note ---
General Surgery-Progress Note Objective Last 24 Hour Vital Signs Date Time Temp Pulse Resp B/P Pulse Ox O2 Delivery O2 Flow Rate FiO2 06/14/16 11:03 101/52 06/14/16 10:02 88 18 97 06/14/16 07:14 Venturi Mask 8.0 40 06/14/16 07:14 88 16 Venturi Mask 8.0 40 06/14/16 07:14 95 Venturi Mask 5.0 40 06/14/16 06:23 97.4 18 18 114/54 94 Room Air 06/14/16 06:09 Venturi Mask 8.0 40 06/14/16 06:08 93 Venturi Mask 8.0 40 06/14/16 05:44 97.7 97 21 107/59 96 Nasal Cannula 5.0 06/14/16 05:00 Nasal Cannula 6.0 06/14/16 04:57 91 18 97 Nasal Cannula 6.0 06/14/16 04:51 81 18 94 Nasal Cannula 6.0 06/14/16 04:48 91 18 Nasal Cannula 6.0 06/14/16 04:00 98.4 90 19 110/70 95 Nasal Cannula 06/14/16 04:00 93 Nasal Cannula 6.0 06/14/16 03:35 98.2 94 18 103/72 90 Nasal Cannula 06/14/16 03:05 85 22 110/50 96 Nasal Cannula 3.0 06/14/16 03:04 98.8 06/14/16 03:04 98.8 06/14/16 02:55 98.8 88 23 106/52 96 Nasal Cannula 3.0 06/14/16 02:45 92 26 108/45 95 Nasal Cannula 3.0 06/14/16 02:30 122 35 123/56 90 Simple Mask 15.0 06/14/16 02:10 100 33 129/59 98 Simple Mask 15.0 06/14/16 02:00 84 33 122/57 98 Simple Mask 15.0 06/14/16 01:50 90 31 120/46 94 Simple Mask 15.0 06/14/16 01:35 106 32 101/47 87 Simple Mask 15.0 06/14/16 01:32 76 18 100 06/14/16 01:31 72 16 96 06/14/16 01:28 98.4 103 36 126/51 85 Simple Mask 15.0 06/14/16 00:05 98.9 85 15 123/78 98 Room Air 06/13/16 23:08 98.9 88 15 118/74 98 Room Air 06/13/16 22:55 98.9 88 15 118/74 98 Room Air 06/13/16 22:00 98.9 06/13/16 20:30 99.0 91 16 115/71 99 Room Air I&O Intake and Output 06/13/16 06/14/16 19:00 07:00 Intake Total 210 ml Balance 210 ml Intake IV Total 210 ml Dressing: dry Drains: none Respiratory: clear Abdomen: soft, flat, tenderness, present bowel sounds Extremities: no tenderness Laboratory Tests Test 06/13/16 21:17 06/14/16 07:20 White Blood Count 13.6 K/UL (4.8-10.8) H 13.0 K/UL (4.8-10.8) H Red Blood Count 5.65 M/UL (4.70-6.10) 5.25 M/UL (4.70-6.10) Hemoglobin 17.8 G/DL (14.2-18.0) 16.7 G/DL (14.2-18.0) Hematocrit 50.3 % (42.0-52.0) 46.8 % (42.0-52.0) Mean Corpuscular Volume 89 FL (80-99) 89 FL (80-99) Mean Corpuscular Hemoglobin 31.6 PG (27.0-31.0) H 31.8 PG (27.0-31.0) H Mean Corpuscular Hemoglobin Concent 35.4 G/DL (32.0-36.0) 35.7 G/DL (32.0-36.0) Red Cell Distribution Width 10.5 % (11.6-14.8) L 10.6 % (11.6-14.8) L Platelet Count 206 K/UL (150-450) 195 K/UL (150-450) Mean Platelet Volume 7.9 FL (6.5-10.1) 8.2 FL (6.5-10.1) Neutrophils (%) (Auto) 83.9 % (45.0-75.0) H % (45.0-75.0) Lymphocytes (%) (Auto) 9.8 % (20.0-45.0) L % (20.0-45.0) Monocytes (%) (Auto) 5.7 % (1.0-10.0) % (1.0-10.0) Eosinophils (%) (Auto) 0.1 % (0.0-3.0) % (0.0-3.0) Basophils (%) (Auto) 0.5 % (0.0-2.0) % (0.0-2.0) Prothrombin Time 10.7 SEC (9.30-11.50) Prothromb Time International Ratio 1.1 (0.9-1.1) Activated Partial Thromboplast Time 29 SEC (23-33) Urine Color Pale yellow Urine Appearance Clear Urine pH 6 (4.5-8.0) Urine Specific [place] 1.015 (1.005-1.035) Urine Protein Negative (NEGATIVE) Urine Glucose (UA) Negative (NEGATIVE) Urine Ketones Negative (NEGATIVE) Urine Occult Blood 1+ (NEGATIVE) H Urine Nitrite Negative (NEGATIVE) Urine Bilirubin Negative (NEGATIVE) Urine Urobilinogen Normal MG/DL (0.0-1.0) Urine Leukocyte Esterase 1+ (NEGATIVE) H Urine RBC 0-2 /HPF (0 - 0) H Urine WBC 0-2 /HPF (0 - 0) Urine Squamous Epithelial Cells None /LPF (NONE/OCC) Urine Bacteria Few /HPF (NONE) Sodium Level 139 mEQ/L (135-145) 137 mEQ/L (135-145) Potassium Level 4.0 mEQ/L (3.4-4.9) 5.0 mEQ/L (3.4-4.9) H Chloride Level 97 mEQ/L (98-107) L 97 mEQ/L (98-107) L Carbon Dioxide Level 24 mEQ/L (20-30) 23 mEQ/L (20-30) Anion Gap 18 (5-15) H 17 (5-15) H Blood Urea Nitrogen 17 mg/dL (7-23) 18 mg/dL (7-23) Creatinine 1.1 mg/dL (0.7-1.2) 1.2 mg/dL (0.7-1.2) Estimat Glomerular Filtration Rate > 60 mL/min (>60) > 60 mL/min (>60) Glucose Level 104 mg/dL (74-106) 184 mg/dL (74-106) H Calcium Level 9.7 mg/dL (8.6-10.2) 8.8 mg/dL (8.6-10.2) Total Bilirubin 3.2 mg/dL (0.0-1.2) H Direct Bilirubin 0.3 mg/dL (0.1-0.3) Aspartate Amino Transf (AST/SGOT) 43 U/L (5-40) H Alanine Aminotransferase (ALT/SGPT) 18 U/L (3-41) Alkaline Phosphatase 81 U/L (40-129) Total Protein 8.1 g/dL (6.6-8.7) Albumin 5.1 g/dL (3.5-5.2) Globulin 3.0 g/dL Albumin/Globulin Ratio 1.7 (1.0-2.7) Lipase 19 U/L (< 60) Differential Total Cells Counted 100 Neutrophils % (Manual) 80 % (45-75) H Lymphocytes % (Manual) 7 % (20-45) L Monocytes % (Manual) 10 % (1-10) Eosinophils % (Manual) 0 % (0-3) Basophils % (Manual) 0 % (0-2) Band Neutrophils 3 % (0-8) Platelet Estimate Adequate Platelet Morphology Normal Red Blood Cell Morphology Normal D-Dimer 3637 ng/mL (<500) H Hemoglobin A1c 4.8 % (< 6.0) Troponin I < 0.30 ng/mL (<=0.30) Triglycerides Level 44 mg/dL (< 150) Cholesterol Level 141 mg/dL (< 200) LDL Cholesterol 78 mg/dL (60-99) HDL Cholesterol 54 mg/dL (> 60) Cholesterol/HDL Ratio 2.6 (3.3-4.4) L Thyroid Stimulating Hormone (TSH) 1.360 uIU/mL (0.300-4.500) Assessment Additional Comments S/P Lap Appy Plan Additional Comments continue the same FRANCISCO JAVIER REGAN Jun 14, 2016 12:08
[2016-06-14] MEDS: Pericolace tab ORAL SCH ×2 (13:42→18:15)
[2016-06-14] MEDS: Solu-MEDROL 125mg Inj IV SCH ×2 (13:46→21:23)
[2016-06-14] MEDS: Piperacillin/Tazobactam 3.375 GM in D5W 110 ML IVPB SCH ×2 (13:47→21:20)
[2016-06-14] MEDS: Albuterol ud Inhalation HHN PRN (15:25)
--- NOTE | 2016-06-14 16:48 | Operative Note - Dictated ---
DATE OF OPERATION: 06/14/2016 PREOPERATIVE DIAGNOSIS: Acute appendicitis. POSTOPERATIVE DIAGNOSIS: Acute appendicitis. OPERATION: Laparoscopy appendectomy. COMPLICATION: None. SURGEON: Bebeto Lopez M.D. MONOGRAM MAKER: None. ANESTHESIA: General with endotracheal tube. ANESTHESIOLOGIST: Jim Walker M.D. INDICATION: This is a 21-year-old male, who presented with abdominal pain since yesterday noon. He stated the pain was located initially all over the abdomen and then it localized at right lower quadrant. Physical examination showed tenderness, rebound tenderness and guarding at right lower quadrant. CBC showed a WBC of 13,600 with a left shift and the CAT scan of the abdomen was interpreted as acute appendicitis. DESCRIPTION OF PROCEDURE: The patient was placed supine on the operating table and after general anesthesia with endotracheal tube, the abdomen was properly prepped and draped. Initially, a small incision was given above the umbilicus through which a Veress needle was introduced into the intraperitoneal cavity. This cavity was insufflated up to 15 mmHg and then the Veress needle was removed and a 5 mm trocar was placed in the intraperitoneal cavity through the incision above the umbilicus. Laparoscope and camera was introduced into the intraperitoneal cavity through the trocar above the umbilicus. Under direct vision, a working 5 mm trocar was placed at the suprapubic area and a 12 mm trocar was placed at the left lower quadrant of the abdomen. Initially, a rapid exploration was performed, which showed the diaphragms to be normal. The part of the stomach, which could be seen was normal. Liver and gallbladder were normal. Bowels were covered with omentum. Exploration of the right lower quadrant cavity was performed and the cecum was identified. Further exploration was performed and the appendix was identified and exposed. Appendix showed acute inflammation and dilatation at the distal half. The appendix and mesoappendix were both exposed. Initially, the windows created in the mesoappendix at the base and the appendix at the base was ligated with the JOSE stapler, and was transected. At the next step, the mesoappendix was ligated and transected with the help of another JOSE stapler. After the appendix was completely released, it was removed from the intraperitoneal cavity through the incision at the left lower quadrant of the abdomen. After that, the intraperitoneal cavity, especially the left paracolic gutter and the pelvis was thoroughly irrigated with antibiotic solution. Another exploration was performed. There was no complication or bleeding. The trocars were removed under direct vision. The incisions were infiltrated with total of 30 mL of Marcaine 0.25%. Then, the incision on the fascia at the left lower quadrant of the abdomen was approximated with a [id number] suture of 0 Vicryl. The subcutaneous tissue was approximated with 4-0 chromic and then the skin incisions were approximated with running subcuticular suture of 4-0 chromic. The patient tolerated the procedure very well and was transferred to recovery room in stable condition and extubated. The sponge and needle count correct. ESTIMATED BLOOD LOSS: 5 mL. CONDITION OF THE PATIENT AT THE END OF PROCEDURE: Stable. Bebeto Lopez M.D. DR: BOOM JOB#: [id number] CC:
[2016-06-14] MEDS: Heparin 5000 units/ml inj SUBQ SCH (21:24)
[2016-06-15] VITALS: BP 118/42
--- NOTE | 2016-06-15 01:28 | History and Physical Report ---
DATE OF ADMISSION: 06/13/2016 SOURCE OF INFORMATION: The patient and EMR. HISTORY OF PRESENT ILLNESS: The patient is a pleasant 21-year-old Sinhala male. The patient presented with acute onset of abdominal pain with radiation to the right lower quadrant status post right lower quadrant. Positive for nausea, vomitus, and chills and fever. The patient's vital signs initially was stable. The initial imaging improved, showed the appendicitis right lower quadrant. The patient was transferred for the emergency surgery. REVIEW OF SYSTEMS: Negative for headache. Negative for shortness of breath. Negative for lower extremity pain. Negative for abnormal bleeding. OUTPATIENT MEDICATIONS: None. PAST MEDICAL HISTORY: Childhood asthma. Otherwise, denies. PAST SURGICAL HISTORY: None. SOCIAL HISTORY: The patient denies history of illicit drug abuse, smoking, or alcohol abuse. FAMILY HISTORY: Reviewed noncontributory. PHYSICAL EXAMINATION: VITAL SIGNS: Blood pressure 110/70, temperature 98.2 degrees, pulse oximetry 99% on room air, and respiratory rate of 18. HEENT: Head is atraumatic and normocephali. Pulse rate is 78. ABDOMEN: Positive for the rebound positive for tenderness. NEUROLOGIC: The patient's awake, alert, and oriented x3. MUSCULOSKELETAL: No gross lateralized motor deficit LABORATORY AND DIAGNOSTIC DATA: Results dated 06/13/2016 showed WBC 13.6, hemoglobin 17.8, and platelets of 206,000. Sodium 139, potassium 4, BUN 17, and creatinine 1.1. The urinalysis is 1+ occult blood in urine. IMAGING: CT scan of the abdomen and pelvis reviewed. ASSESSMENT: 1. Sepsis. 2. Acute abdomen. 3. Acute appendicitis. 4. Childhood asthma, controlled. 5. Gastrointestinal and deep vein thrombosis prophylaxes. PLAN OF CARE: To proceed with the surgery per surgeon Dr. Lopez Jerad Patterson M.D. DR: Rose JOB#: [id number] CC: NICHOLE
[2016-06-15 04:00] VITALS: BP 114/47
[2016-06-15] MEDS: Albuterol ud Inhalation HHN PRN (04:31)
[2016-06-15] MEDS: Solu-MEDROL 125mg Inj IV SCH (05:53)
[2016-06-15] MEDS: Piperacillin/Tazobactam 3.375 GM in D5W 110 ML IVPB SCH ×3 (05:53→22:11)
--- NOTE | 2016-06-15 07:02 | 48 Hour Post Anesthesia Eval ---
Post Anesthesia Evaluation Procedure: Laparoscopic Appendectomy Date of Evaluation: Jun 15, 2016 Time of Evaluation: 06:51 Blood Pressure Systolic: 114 0: 47 Pulse Rate: 92 Respiratory Rate: 16 Temperature (Fahrenheit): 97.5 O2 Sat by Pulse Oximetry: 99 Airway: patent Nausea: No Vomiting: No Pain Intensity: 2 Hydration Status: adequate Cardiopulmonary Status: Stable, 99% 02 sat on nasal cannula-much improved. Mental Status/LOC: patient returned to baseline Follow-up Care/Observations: Home Today? Post-Anesthesia Complications: 0 Follow-up care needed: N/A Jim Walker MD Jun 15, 2016 07:02
[2016-06-15] MEDS: D5 1/2NS w/KCl 20mEq 1,000 ML IV SCH ×2 (07:30→13:24)
--- NOTE | 2016-06-15 07:48 | General Progress Note ---
Assessment/Plan Status: stable Assessment/Plan 1. Sepsis: source? PNA? abdomen: less likely 2. Acute Hypoxemic respiratory failure 3. Diffuse interstitial lung disease: etiology unknown 4. Acute abdomen: Resolved 5. Appendicitis. Post Surgical resection 6. Gastrointestinal and deep vein thrombosis prophylaxes. Plan: C/w steroid management, Unknown etiology of lung disease. Defer to pulmonary c consultant Subjective ROS Limited/Unobtainable: No Constitutional: Reports: no symptoms HEENT: Reports: no symptoms Cardiovascular: Reports: no symptoms Respiratory: Reports: shortness of breath Allergies: Coded Allergies: METOCLOPRAMIDE (Verified Allergy, Mild, SOB, 06/14/16) Cultivated Oat Pollen (Unverified Allergy, Unknown, 06/13/16) Uncoded Allergies: POLLENS (Allergy, Unknown, 06/13/16) Objective Last 24 Hour Vital Signs Date Time Temp Pulse Resp B/P Pulse Ox O2 Delivery O2 Flow Rate FiO2 06/15/16 07:02 92 16 99 06/15/16 04:32 92 16 99 Nasal Cannula 2.0 28 06/15/16 04:31 84 16 98 Nasal Cannula 2.0 28 06/15/16 04:00 97.5 89 18 114/47 96 Nasal Cannula 2.0 06/15/16 04:00 66 06/15/16 00:00 78 06/15/16 00:00 97.9 74 18 118/42 99 Nasal Cannula 2.0 06/14/16 20:00 98.4 82 19 109/45 Nasal Cannula 2.0 93 06/14/16 20:00 74 06/14/16 19:30 96 Nasal Cannula 2.0 28 06/14/16 19:30 Nasal Cannula 2.0 28 06/14/16 19:30 86 16 Nasal Cannula 2.0 28 06/14/16 16:00 83 06/14/16 16:00 98.2 87 18 98/50 Nasal Cannula 2.0 98 06/14/16 15:28 95 16 97 Nasal Cannula 3.0 32 06/14/16 15:20 88 16 96 Nasal Cannula 3.0 32 06/14/16 15:20 32 06/14/16 12:58 96.8 17 17 111/56 98 Room Air 06/14/16 12:00 89 06/14/16 11:03 101/52 06/14/16 10:40 83 06/14/16 10:02 88 18 97 Intake and Output 06/14/16 06/15/16 19:00 07:00 Intake Total 27.5 ml 582.5 ml Output Total 600 ml 450 ml Balance -572.5 ml 132.5 ml Intake IV Total 27.5 ml 582.5 ml Output Urine Total 600 ml 450 ml # Voids 2 Height (Feet): 5 Height (Inches): 7.00 Weight (Pounds): 123 General Appearance: no apparent distress EENT: PERRL/EOMI Neck: supple Cardiovascular: normal rate Respiratory/Chest: crackles/rales Abdomen: soft Extremities: non-tender Neurologic: oriented x 3 Jerad Patterson MD Jun 15, 2016 07:48
[2016-06-15 08:00] VITALS: BP 108/42
[2016-06-15] MEDS: Heparin 5000 units/ml inj SUBQ SCH ×3 (09:00→22:13)
[2016-06-15 09:17] LABS: MEAN CORPUSCULAR HEMOGLOBIN 31.2 PG (27.0-31.0); MEAN CORPUSCULAR HGB CONC 35.1 G/DL (32.0-36.0); MEAN CORPUSCULAR VOLUME 89 FL (80-99); MEAN PLATELET VOLUME 8.3 FL (6.5-10.1); PLATELET COUNT 180 K/UL (150-450); RED BLOOD COUNT 4.75 M/UL (4.70-6.10); RED CELL DISTRIBUTION WIDTH 10.5 % (11.6-14.8); WHITE BLOOD COUNT 14.1 K/UL (4.8-10.8)
[2016-06-15 09:24] LABS: ALANINE AMINOTRANSFERASE 13 U/L (3-41); ALBUMIN/GLOBULIN RATIO 1.3 (1.0-2.7); ANION GAP 14 (5-15); ASPARTATE AMINO TRANSFERASE 26 U/L (5-40); CARBON DIOXIDE 25 mEQ/L (20-30); CHLORIDE 101 mEQ/L (98-107); CREATININE 1.1 mg/dL (0.7-1.2); GLOMERULAR FILTRATION RATE > 60 mL/min (>60); HEMOLYSIS 8; POTASSIUM 4.3 mEQ/L (3.4-4.9); SODIUM 140 mEQ/L (135-145); TOTAL PROTEIN 6.6 g/dL (6.6-8.7)
[2016-06-15 09:40] LABS: BILIRUBIN,DIRECT 0.3 mg/dL (0.1-0.3)
[2016-06-15 10:08] LABS: BAND NEUTROPHILS % (MANUAL) 0 % (0-8); BASOPHILS % (MANUAL) 0 % (0-2); EOSINOPHILS % (MANUAL) 0 % (0-3); LYMPHOCYTES % (MANUAL) 9 % (20-45); NEUTROPHILS % (MANUAL) 90 % (45-75); PLATELET ESTIMATE ADEQUATE; PLATELET MORPHOLOGY NORMAL; TOTAL CELLS COUNTED 100
[2016-06-15] MEDS: Pericolace tab ORAL SCH ×2 (10:54→19:05)
[2016-06-15] MEDS: Pantoprazole Inj IVP SCH (10:54)
--- NOTE | 2016-06-15 11:41 | Infectious Diseases Prog Note ---
Assessment/Plan Assessment/Plan A: 21-year-old M w Acute onset of abdominal pain with radiation to the RLQ SP nausea, vomitus, and chills and fever SP appendectomy leukocytosis Plan : Cont w zosyn , may DC upon DC or tomorrow monitor CBC monitor BMP Gen Sx is following Subjective Allergies: Coded Allergies: METOCLOPRAMIDE (Verified Allergy, Mild, SOB, 06/14/16) Cultivated Oat Pollen (Unverified Allergy, Unknown, 06/13/16) Uncoded Allergies: POLLENS (Allergy, Unknown, 06/13/16) Subjective feeling better Objective Vital Signs Last 24 Hour Vital Signs Date Time Temp Pulse Resp B/P Pulse Ox O2 Delivery O2 Flow Rate FiO2 06/15/16 08:00 97.0 74 20 108/42 95 Nasal Cannula 2.0 06/15/16 07:40 85 06/15/16 07:34 Room Air 06/15/16 07:31 96 Room Air 21 06/15/16 07:30 86 16 Room Air 21 06/15/16 07:02 92 16 99 06/15/16 04:32 92 16 99 Nasal Cannula 2.0 28 06/15/16 04:31 84 16 98 Nasal Cannula 2.0 28 06/15/16 04:00 97.5 89 18 114/47 96 Nasal Cannula 2.0 06/15/16 04:00 66 06/15/16 00:00 78 06/15/16 00:00 97.9 74 18 118/42 99 Nasal Cannula 2.0 06/14/16 20:00 98.4 82 19 109/45 Nasal Cannula 2.0 93 06/14/16 20:00 74 06/14/16 19:30 96 Nasal Cannula 2.0 28 06/14/16 19:30 Nasal Cannula 2.0 28 06/14/16 19:30 86 16 Nasal Cannula 2.0 28 06/14/16 16:00 83 06/14/16 16:00 98.2 87 18 98/50 Nasal Cannula 2.0 98 06/14/16 15:28 95 16 97 Nasal Cannula 3.0 32 06/14/16 15:20 88 16 96 Nasal Cannula 3.0 32 06/14/16 15:20 32 06/14/16 12:58 96.8 17 17 111/56 98 Room Air 06/14/16 12:00 89 Height (Feet): 5 Height (Inches): 7.00 Weight (Pounds): 123 HEENT: anicteric Respiratory/Chest: no respiratory distress Cardiovascular: regular rhythm Abdomen: normal bowel sounds Laboratory Tests Test 06/15/16 08:30 White Blood Count 14.1 K/UL (4.8-10.8) H Red Blood Count 4.75 M/UL (4.70-6.10) Hemoglobin 14.8 G/DL (14.2-18.0) Hematocrit 42.2 % (42.0-52.0) Mean Corpuscular Volume 89 FL (80-99) Mean Corpuscular Hemoglobin 31.2 PG (27.0-31.0) H Mean Corpuscular Hemoglobin Concent 35.1 G/DL (32.0-36.0) Red Cell Distribution Width 10.5 % (11.6-14.8) L Platelet Count 180 K/UL (150-450) Mean Platelet Volume 8.3 FL (6.5-10.1) Neutrophils (%) (Auto) % (45.0-75.0) Lymphocytes (%) (Auto) % (20.0-45.0) Monocytes (%) (Auto) % (1.0-10.0) Eosinophils (%) (Auto) % (0.0-3.0) Basophils (%) (Auto) % (0.0-2.0) Differential Total Cells Counted 100 Neutrophils % (Manual) 90 % (45-75) H Lymphocytes % (Manual) 9 % (20-45) L Monocytes % (Manual) 1 % (1-10) Eosinophils % (Manual) 0 % (0-3) Basophils % (Manual) 0 % (0-2) Band Neutrophils 0 % (0-8) Platelet Estimate Adequate Platelet Morphology Normal Red Blood Cell Morphology Normal Sodium Level 140 mEQ/L (135-145) Potassium Level 4.3 mEQ/L (3.4-4.9) Chloride Level 101 mEQ/L (98-107) Carbon Dioxide Level 25 mEQ/L (20-30) Anion Gap 14 (5-15) Blood Urea Nitrogen 14 mg/dL (7-23) Creatinine 1.1 mg/dL (0.7-1.2) Estimat Glomerular Filtration Rate > 60 mL/min (>60) Glucose Level 194 mg/dL (74-106) H Calcium Level 9.0 mg/dL (8.6-10.2) Total Bilirubin 2.2 mg/dL (0.0-1.2) H Direct Bilirubin 0.3 mg/dL (0.1-0.3) Aspartate Amino Transf (AST/SGOT) 26 U/L (5-40) Alanine Aminotransferase (ALT/SGPT) 13 U/L (3-41) Alkaline Phosphatase 50 U/L (40-129) Total Protein 6.6 g/dL (6.6-8.7) Albumin 3.8 g/dL (3.5-5.2) Globulin 2.8 g/dL Albumin/Globulin Ratio 1.3 (1.0-2.7) Current Medications Medications (Trade) Dose Ordered Sig/Vianney Route PRN Reason Start Time Stop Time Status Last Admin Dose Admin Acetaminophen (Tylenol) 650 mg Q4H PRN RECTAL Mild Pain (Pain Scale 1-3) 06/14/16 11:20 07/14/16 11:19 Albuterol Sulfate (Proventil) 2.5 mg QIDPRN PRN HHN Shortness of Breath 06/14/16 11:20 06/19/16 11:19 06/15/16 04:31 Dextrose/ Electrolytes 1,000 ml @ 100 mls/hr Q10H IV 06/14/16 11:30 07/14/16 11:29 06/15/16 07:30 Heparin Sodium (Porcine) (Heparin 5000 units/ml) 5,000 units EVERY 12 HOURS SUBQ 06/14/16 21:00 07/14/16 20:59 06/14/16 21:24 Hydromorphone HCl (Dilaudid) 1 mg Q4H PRN IVP For Pain 06/14/16 11:20 06/21/16 11:19 Methylprednisolone Sodium Succinate (Solu-MEDROL) 40 mg Q8HR IV 06/14/16 14:00 07/14/16 13:59 06/15/16 05:53 Pantoprazole (Protonix) 40 mg DAILY IVP 06/15/16 09:00 07/15/16 08:59 06/15/16 10:54 Piperacillin Sod/ Tazobactam Sod/ Dextrose (Zosyn/D5W) 110 ml @ 27.5 mls/hr EVERY 8 HOURS IVPB 06/14/16 14:00 06/19/16 13:59 06/15/16 05:53 Senna/Docusate Sodium (Mattie-Colace) 1 ea TWICE A DAY ORAL 06/14/16 13:00 07/14/16 12:59 06/15/16 10:54 ANNA TORREZ M.D. Jun 15, 2016 11:41
[2016-06-15 11:46] VITALS: BP 122/65
--- NOTE | 2016-06-15 13:13 | General Surgery Progress Note ---
General Surgery-Progress Note Subjective Symptoms: improved Objective Last 24 Hour Vital Signs Date Time Temp Pulse Resp B/P Pulse Ox O2 Delivery O2 Flow Rate FiO2 06/15/16 11:46 98.1 82 20 122/65 95 Nasal Cannula 2.0 06/15/16 08:00 97.0 74 20 108/42 95 Nasal Cannula 2.0 06/15/16 07:40 85 06/15/16 07:34 Room Air 06/15/16 07:31 96 Room Air 21 06/15/16 07:30 86 16 Room Air 21 06/15/16 07:02 92 16 99 06/15/16 04:32 92 16 99 Nasal Cannula 2.0 28 06/15/16 04:31 84 16 98 Nasal Cannula 2.0 28 06/15/16 04:00 97.5 89 18 114/47 96 Nasal Cannula 2.0 06/15/16 04:00 66 06/15/16 00:00 78 06/15/16 00:00 97.9 74 18 118/42 99 Nasal Cannula 2.0 06/14/16 20:00 98.4 82 19 109/45 Nasal Cannula 2.0 93 06/14/16 20:00 74 06/14/16 19:30 96 Nasal Cannula 2.0 28 06/14/16 19:30 Nasal Cannula 2.0 28 06/14/16 19:30 86 16 Nasal Cannula 2.0 28 06/14/16 16:00 83 06/14/16 16:00 98.2 87 18 98/50 Nasal Cannula 2.0 98 06/14/16 15:28 95 16 97 Nasal Cannula 3.0 32 06/14/16 15:20 88 16 96 Nasal Cannula 3.0 32 06/14/16 15:20 32 I&O Intake and Output 06/14/16 06/15/16 19:00 07:00 Intake Total 27.5 ml 582.5 ml Output Total 600 ml 450 ml Balance -572.5 ml 132.5 ml IV Total 27.5 ml 582.5 ml Output Urine Total 600 ml 450 ml # Voids 2 Respiratory: other - rhonchi bilateral coughing Abdomen: soft, flat, tenderness, present bowel sounds Laboratory Tests Test 06/15/16 08:30 White Blood Count 14.1 K/UL (4.8-10.8) H Red Blood Count 4.75 M/UL (4.70-6.10) Hemoglobin 14.8 G/DL (14.2-18.0) Hematocrit 42.2 % (42.0-52.0) Mean Corpuscular Volume 89 FL (80-99) Mean Corpuscular Hemoglobin 31.2 PG (27.0-31.0) H Mean Corpuscular Hemoglobin Concent 35.1 G/DL (32.0-36.0) Red Cell Distribution Width 10.5 % (11.6-14.8) L Platelet Count 180 K/UL (150-450) Mean Platelet Volume 8.3 FL (6.5-10.1) Neutrophils (%) (Auto) % (45.0-75.0) Lymphocytes (%) (Auto) % (20.0-45.0) Monocytes (%) (Auto) % (1.0-10.0) Eosinophils (%) (Auto) % (0.0-3.0) Basophils (%) (Auto) % (0.0-2.0) Differential Total Cells Counted 100 Neutrophils % (Manual) 90 % (45-75) H Lymphocytes % (Manual) 9 % (20-45) L Monocytes % (Manual) 1 % (1-10) Eosinophils % (Manual) 0 % (0-3) Basophils % (Manual) 0 % (0-2) Band Neutrophils 0 % (0-8) Platelet Estimate Adequate Platelet Morphology Normal Red Blood Cell Morphology Normal Sodium Level 140 mEQ/L (135-145) Potassium Level 4.3 mEQ/L (3.4-4.9) Chloride Level 101 mEQ/L (98-107) Carbon Dioxide Level 25 mEQ/L (20-30) Anion Gap 14 (5-15) Blood Urea Nitrogen 14 mg/dL (7-23) Creatinine 1.1 mg/dL (0.7-1.2) Estimat Glomerular Filtration Rate > 60 mL/min (>60) Glucose Level 194 mg/dL (74-106) H Calcium Level 9.0 mg/dL (8.6-10.2) Total Bilirubin 2.2 mg/dL (0.0-1.2) H Direct Bilirubin 0.3 mg/dL (0.1-0.3) Aspartate Amino Transf (AST/SGOT) 26 U/L (5-40) Alanine Aminotransferase (ALT/SGPT) 13 U/L (3-41) Alkaline Phosphatase 50 U/L (40-129) Total Protein 6.6 g/dL (6.6-8.7) Albumin 3.8 g/dL (3.5-5.2) Globulin 2.8 g/dL Albumin/Globulin Ratio 1.3 (1.0-2.7) Assessment Additional Comments S/P Lap Appy Plan Additional Comments per pricing strategist FRANCISCO JAVIER REGAN Jun 15, 2016 13:13
--- NOTE | 2016-06-15 13:25 | Pulmonology Progress Note ---
Assessment/Plan Problems: (1) Interstitial lung disease (2) Pulmonary nodule Assessment/Plan serology for fungal disease HIV ppd TB gold titrate fio2 Subjective ROS Limited/Unobtainable: No Interval Events: still coughing, some shortness of breath Allergies: Coded Allergies: METOCLOPRAMIDE (Verified Allergy, Mild, SOB, 06/14/16) Cultivated Oat Pollen (Unverified Allergy, Unknown, 06/13/16) Uncoded Allergies: POLLENS (Allergy, Unknown, 06/13/16) Objective Last 24 Hour Vital Signs Date Time Temp Pulse Resp B/P Pulse Ox O2 Delivery O2 Flow Rate FiO2 06/15/16 11:46 98.1 82 20 122/65 95 Nasal Cannula 2.0 06/15/16 08:00 97.0 74 20 108/42 95 Nasal Cannula 2.0 06/15/16 07:40 85 06/15/16 07:34 Room Air 06/15/16 07:31 96 Room Air 21 06/15/16 07:30 86 16 Room Air 21 06/15/16 07:02 92 16 99 06/15/16 04:32 92 16 99 Nasal Cannula 2.0 28 06/15/16 04:31 84 16 98 Nasal Cannula 2.0 28 06/15/16 04:00 97.5 89 18 114/47 96 Nasal Cannula 2.0 06/15/16 04:00 66 06/15/16 00:00 78 06/15/16 00:00 97.9 74 18 118/42 99 Nasal Cannula 2.0 06/14/16 20:00 98.4 82 19 109/45 Nasal Cannula 2.0 93 06/14/16 20:00 74 06/14/16 19:30 96 Nasal Cannula 2.0 28 06/14/16 19:30 Nasal Cannula 2.0 28 06/14/16 19:30 86 16 Nasal Cannula 2.0 28 06/14/16 16:00 83 06/14/16 16:00 98.2 87 18 98/50 Nasal Cannula 2.0 98 06/14/16 15:28 95 16 97 Nasal Cannula 3.0 32 06/14/16 15:20 88 16 96 Nasal Cannula 3.0 32 06/14/16 15:20 32 Intake and Output 06/14/16 06/15/16 19:00 07:00 Intake Total 27.5 ml 582.5 ml Output Total 600 ml 450 ml Balance -572.5 ml 132.5 ml IV Total 27.5 ml 582.5 ml Output Urine Total 600 ml 450 ml # Voids 2 General Appearance: WD/WN HEENT: normocephalic, atraumatic Respiratory/Chest: chest wall non-tender, lungs clear Cardiovascular: normal peripheral pulses, normal rate Abdomen: normal bowel sounds, soft, non tender Genitourinary: normal external genitalia Extremities: no cyanosis Skin: no lesions 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 Lymphatic: no neck adenopathy Laboratory Tests 06/15/16 08:30: White Blood Count 14.1H, Red Blood Count 4.75, Hemoglobin 14.8, Hematocrit 42.2 , Mean Corpuscular Volume 89, Mean Corpuscular Hemoglobin 31.2H, Mean Corpuscular Hemoglobin Concent 35.1, Red Cell Distribution Width 10.5L, Platelet Count 180, Mean Platelet Volume 8.3, Neutrophils (%) (Auto) , Lymphocytes (%) (Auto) , Monocytes (%) (Auto) , Eosinophils (%) (Auto) , Basophils (%) (Auto) , Differential Total Cells Counted 100, Neutrophils % ( Manual) 90H, Lymphocytes % (Manual) 9L, Monocytes % (Manual) 1, Eosinophils % ( Manual) 0, Basophils % (Manual) 0, Band Neutrophils 0, Platelet Estimate Adequate, Platelet Morphology Normal, Red Blood Cell Morphology Normal, Sodium Level 140, Potassium Level 4.3, Chloride Level 101, Carbon Dioxide Level 25, Anion Gap 14, Blood Urea Nitrogen 14, Creatinine 1.1, Estimat Glomerular Filtration Rate > 60, Glucose Level 194H, Calcium Level 9.0, Total Bilirubin 2.2H, Direct Bilirubin 0.3, Aspartate Amino Transf (AST/SGOT) 26, Alanine Aminotransferase (ALT/SGPT) 13, Alkaline Phosphatase 50, Total Protein 6.6, Albumin 3.8, Globulin 2.8, Albumin/Globulin Ratio 1.3 Current Medications Medications (Trade) Dose Ordered Sig/Vianney Route PRN Reason Start Time Stop Time Status Last Admin Dose Admin Acetaminophen (Tylenol) 650 mg Q4H PRN RECTAL Mild Pain (Pain Scale 1-3) 06/14/16 11:20 07/14/16 11:19 Albuterol Sulfate (Proventil) 2.5 mg QIDPRN PRN HHN Shortness of Breath 06/14/16 11:20 06/19/16 11:19 06/15/16 04:31 Dextrose/ Electrolytes 1,000 ml @ 100 mls/hr Q10H IV 06/14/16 11:30 07/14/16 11:29 06/15/16 07:30 Heparin Sodium (Porcine) (Heparin 5000 units/ml) 5,000 units EVERY 12 HOURS SUBQ 06/14/16 21:00 07/14/16 20:59 06/14/16 21:24 Hydromorphone HCl (Dilaudid) 1 mg Q4H PRN IVP For Pain 06/14/16 11:20 06/21/16 11:19 Methylprednisolone Sodium Succinate (Solu-MEDROL) 40 mg Q8HR IV 06/14/16 14:00 07/14/16 13:59 06/15/16 05:53 Pantoprazole (Protonix) 40 mg DAILY IVP 06/15/16 09:00 07/15/16 08:59 06/15/16 10:54 Piperacillin Sod/ Tazobactam Sod/ Dextrose (Zosyn/D5W) 110 ml @ 27.5 mls/hr EVERY 8 HOURS IVPB 06/14/16 14:00 06/19/16 13:59 06/15/16 05:53 Senna/Docusate Sodium (Mattie-Colace) 1 ea TWICE A DAY ORAL 06/14/16 13:00 07/14/16 12:59 06/15/16 10:54 LARISA BAH Jun 15, 2016 13:25
[2016-06-15 16:00] VITALS: BP 118/67
[2016-06-15] MEDS ORDERED: PPD Tuberculin Skin Test 5TU IDERMAL ONE (16:00)
--- NOTE | 2016-06-15 17:26 | GI Initial Consult Note ---
History of Present Illness General Date patient seen: Jun 15, 2016 Time patient seen: 10:00 Reason for Hospitalization: Abdominal Pain Referring physician: dr Patterson Reason for Consultation: abdominal pain Present Illness HPI HISTORY OF PRESENT ILLNESS: The patient is a pleasant 21-year-old Telugu male. The patient presented with acute onset of abdominal pain with radiation to the right lower quadrant status post right lower quadrant. Positive for nausea, vomitus, and chills and fever. The patient's vital signs initially was stable. The initial imaging improved, showed the appendicitis right lower quadrant. The patient was transferred for the emergency surgery. GI CONSULT: HPI as noted above. GI consulted for abdominal pain. Pt now s/p lap appy, seen on floor, A&Ox4 NAD with abdominal pain 2/2 to surgery. Pt presents with leukocytosis. No history of any endoscopic procedures. Home Meds Reported Medications No Known Medications* (NKM - No Known Medications*) ., 0 ., 0 Refills 06/13/16 Med list reviewed/reconciled: Yes Allergies: Coded Allergies: METOCLOPRAMIDE (Verified Allergy, Mild, SOB, 06/14/16) Cultivated Oat Pollen (Unverified Allergy, Unknown, 06/13/16) Uncoded Allergies: POLLENS (Allergy, Unknown, 06/13/16) Patient History History Provided By: Patient, Medical Record PMH Narrative Asthma Review of Systems All Other Systems: negative except mentioned in HPI Physical Exam Vital Signs Date Time Temp Pulse Resp B/P Pulse Ox O2 Delivery O2 Flow Rate FiO2 06/13/16 20:30 99.0 91 16 115/71 99 Room Air 06/14/16 01:28 15.0 06/14/16 06:08 40 Sp02 EP Interpretation: reviewed Labs Laboratory Tests Test 06/15/16 08:30 White Blood Count 14.1 K/UL (4.8-10.8) H Red Blood Count 4.75 M/UL (4.70-6.10) Hemoglobin 14.8 G/DL (14.2-18.0) Hematocrit 42.2 % (42.0-52.0) Mean Corpuscular Volume 89 FL (80-99) Mean Corpuscular Hemoglobin 31.2 PG (27.0-31.0) H Mean Corpuscular Hemoglobin Concent 35.1 G/DL (32.0-36.0) Red Cell Distribution Width 10.5 % (11.6-14.8) L Platelet Count 180 K/UL (150-450) Mean Platelet Volume 8.3 FL (6.5-10.1) Neutrophils (%) (Auto) % (45.0-75.0) Lymphocytes (%) (Auto) % (20.0-45.0) Monocytes (%) (Auto) % (1.0-10.0) Eosinophils (%) (Auto) % (0.0-3.0) Basophils (%) (Auto) % (0.0-2.0) Differential Total Cells Counted 100 Neutrophils % (Manual) 90 % (45-75) H Lymphocytes % (Manual) 9 % (20-45) L Monocytes % (Manual) 1 % (1-10) Eosinophils % (Manual) 0 % (0-3) Basophils % (Manual) 0 % (0-2) Band Neutrophils 0 % (0-8) Platelet Estimate Adequate Platelet Morphology Normal Red Blood Cell Morphology Normal Sodium Level 140 mEQ/L (135-145) Potassium Level 4.3 mEQ/L (3.4-4.9) Chloride Level 101 mEQ/L (98-107) Carbon Dioxide Level 25 mEQ/L (20-30) Anion Gap 14 (5-15) Blood Urea Nitrogen 14 mg/dL (7-23) Creatinine 1.1 mg/dL (0.7-1.2) Estimat Glomerular Filtration Rate > 60 mL/min (>60) Glucose Level 194 mg/dL (74-106) H Calcium Level 9.0 mg/dL (8.6-10.2) Total Bilirubin 2.2 mg/dL (0.0-1.2) H Direct Bilirubin 0.3 mg/dL (0.1-0.3) Aspartate Amino Transf (AST/SGOT) 26 U/L (5-40) Alanine Aminotransferase (ALT/SGPT) 13 U/L (3-41) Alkaline Phosphatase 50 U/L (40-129) Lactate Dehydrogenase 191 U/L (135-230) Total Protein 6.6 g/dL (6.6-8.7) Albumin 3.8 g/dL (3.5-5.2) Globulin 2.8 g/dL Albumin/Globulin Ratio 1.3 (1.0-2.7) Carcinoembryonic Antigen 1.7 ng/mL HIV (1&2) Antibody Rapid Negative (NEGATIVE) General Appearance: no apparent distress, alert, thin Head: normocephalic EENT: normal ENT inspection Neck: supple Respiratory: no respiratory distress Cardiovascular: normal rate Gastrointestinal: other - s/p lap appy Rectal: deferred Neurologic: normal inspection, alert, oriented x3, responsive Psychiatric: normal inspection, judgement/insight normal, memory normal Skin: normal inspection, normal color, no rash, warm/dry Lymphatic: normal inspection, no adenopathy Current Medications Current Medications Medications (Trade) Dose Ordered Sig/Vianney Route PRN Reason Start Time Stop Time Status Last Admin Dose Admin Acetaminophen (Tylenol) 650 mg Q4H PRN RECTAL Mild Pain (Pain Scale 1-3) 06/14/16 11:20 07/14/16 11:19 Albuterol Sulfate (Proventil) 2.5 mg QIDPRN PRN HHN Shortness of Breath 06/14/16 11:20 06/19/16 11:19 06/15/16 04:31 Dextrose/ Electrolytes (D5 0.45%NS W/ KCl 20mEq) 1,000 ml @ 50 mls/hr Q20H IV 06/15/16 13:30 07/15/16 13:29 06/15/16 13:24 Heparin Sodium (Porcine) (Heparin 5000 units/ml) 5,000 units EVERY 12 HOURS SUBQ 06/14/16 21:00 07/14/16 20:59 06/14/16 21:24 Hydromorphone HCl (Dilaudid) 1 mg Q4H PRN IVP For Pain 06/14/16 11:20 06/21/16 11:19 Pantoprazole (Protonix) 40 mg DAILY IVP 06/15/16 09:00 07/15/16 08:59 06/15/16 10:54 Piperacillin Sod/ Tazobactam Sod/ Dextrose (Zosyn/D5W) 110 ml @ 27.5 mls/hr EVERY 8 HOURS IVPB 06/14/16 14:00 06/19/16 13:59 06/15/16 13:25 Senna/Docusate Sodium 1 ea 1 ea TWICE A DAY ORAL 06/14/16 13:00 07/14/16 12:59 06/15/16 10:54 GI: Plan Problems: (1) SOB (shortness of breath) (2) Appendicitis (3) Abdominal pain Plan s/p lap appy surgical recs pain mgmt diet, adv as tolerated ppi abx fu labs Discussed with Dr. Madera. Thank you for referring this patient, we will follow. Navya Pal N.P. Jun 15, 2016 17:26
[2016-06-15 20:00] VITALS: BP 114/49
--- NOTE | 2016-06-15 20:18 | Consultation ---
DATE OF CONSULTATION: 06/14/2016 INFECTIOUS DISEASE CONSULTATION REFERRING PHYSICIAN: This consult is for coverage of Dr. Meléndez. PRIMARY ATTENDING PHYSICIAN: Jerad Patterson M.D. SURGEON: Bebeto Lopez M.D. REASON FOR CONSULT: Acute appendicitis. HISTORY OF PRESENT ILLNESS: The patient is a 21-year-old male admitted yesterday complaining of abdominal pain in right lower quadrant. Pain was going on for two days. CT scan of the abdomen and pelvis showed acute appendicitis and the patient underwent a laparoscopic appendectomy. After the surgery, the patient had a drop in oxygen saturation and transferred to telemetry. PAST MEDICAL HISTORY: Significant for asthma. MEDICATIONS: The patient's medications are Protonix, heparin, Zosyn, IV methylprednisolone, Mattie-Colace, Tylenol, albuterol and hydromorphone. ALLERGIES: Having multiple allergy. SOCIAL HISTORY: Single. He has a history of alcohol, drug abuse and smoking. REVIEW OF SYSTEMS: Unobtainable, the patient is sleeping. PHYSICAL EXAMINATION: GENERAL APPEARANCE: No acute distress. VITAL SIGNS: Temperature 96.8 degrees, blood pressure 111/56, respiratory rate is 17, and O2 saturation was 98%. HEAD AND NECK: Turney conjunctivae. HEART: S1 and S2. Regular. LUNGS: Clear. ABDOMEN: Soft and nontender. EXTREMITIES: No edema. LABORATORY AND DIAGNOSTIC DATA: WBC 13,000, hemoglobin 16.7, hematocrit 46.8, and platelet is 159,000. Sodium 134, potassium 5, chloride 97, bicarbonate 23, BUN 18, creatinine 1.2 and glucose 184. IMPRESSION: 1. Acute appendicitis status post laparoscopic appendectomy. 2. Hypoxemia. 3. History of asthma. 4. Multiple allergies. RECOMMENDATION: We will continue with Zosyn. We will follow up the cultures. I thank, Dr. Patterson, for involving me in the care of this patient. Miko Smith M.D. DR: WILLIAM JOB#: [id number] CC: NICHOLE
[2016-06-16 00:32] VITALS: BP 113/58
[2016-06-16 04:02] VITALS: BP 107/49
[2016-06-16] MEDS: Piperacillin/Tazobactam 3.375 GM in D5W 110 ML IVPB SCH (05:53)
[2016-06-16 08:00] VITALS: BP 113/57
[2016-06-16] MEDS: Heparin 5000 units/ml inj SUBQ SCH (09:00)
--- NOTE | 2016-06-16 09:23 | General Progress Note ---
Assessment/Plan Status: stable Assessment/Plan 1. Sepsis: source? PNA? abdomen: less likely, negative blood cultures- clinically improving 2. Acute Hypoxemic respiratory failure 3. Diffuse interstitial lung disease: etiology unknown 4. Acute abdomen: Resolved 5. Appendicitis. Post Surgical resection 6. Gastrointestinal and deep vein thrombosis prophylaxes. Plan: C/w steroid management, Unknown etiology of lung disease. TB, Fungal infection workup pending Subjective ROS Limited/Unobtainable: Yes Respiratory: Reports: shortness of breath Gastrointestinal/Abdominal: Reports: abdominal pain Allergies: Coded Allergies: METOCLOPRAMIDE (Verified Allergy, Mild, SOB, 06/14/16) Cultivated Oat Pollen (Unverified Allergy, Unknown, 06/13/16) Uncoded Allergies: POLLENS (Allergy, Unknown, 06/13/16) Objective Last 24 Hour Vital Signs Date Time Temp Pulse Resp B/P Pulse Ox O2 Delivery O2 Flow Rate FiO2 06/16/16 04:02 98.8 78 19 107/49 96 Room Air 06/16/16 04:00 63 06/16/16 00:32 98.5 82 20 113/58 98 Room Air 06/16/16 00:00 81 06/15/16 20:06 98 Room Air 06/15/16 20:06 Room Air 06/15/16 20:05 88 20 Nasal Cannula 21 06/15/16 20:00 88 06/15/16 20:00 98.0 80 20 114/49 95 Room Air 06/15/16 16:00 98.0 81 20 118/67 96 Room Air 06/15/16 16:00 96 06/15/16 11:50 103 06/15/16 11:46 98.1 82 20 122/65 95 Nasal Cannula 2.0 Intake and Output 06/15/16 06/16/16 18:59 06:59 Intake Total 650.0 ml 487.5 ml Balance 650.0 ml 487.5 ml Intake Oral 240 ml 150 ml IV Total 410.0 ml 337.5 ml # Voids 2 3 Height (Feet): 5 Height (Inches): 7.00 Weight (Pounds): 123 General Appearance: no apparent distress EENT: PERRL/EOMI Neck: supple Cardiovascular: normal rate Respiratory/Chest: rhonchi - bilaterally Abdomen: soft Extremities: non-tender 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
[2016-06-16] MEDS: Pantoprazole Inj IVP SCH (09:24)
[2016-06-16] MEDS: Pericolace tab ORAL SCH ×2 (09:29→17:54)
--- NOTE | 2016-06-16 09:39 | GI Progress Note ---
Assessment/Plan Problems: (1) Abdominal pain ICD Codes: R10.9 - Unspecified abdominal pain SNOMED: 92635034 (2) Appendicitis ICD Codes: K37 - Unspecified appendicitis SNOMED: 32965244 Status: doing well, stable Status Narrative Discussed with Dr. Madera. Assessment/Plan ok for DC per GI standpoint surgical recs FLD, tolerating will adv to regular s/p lap appy pain mgmt ppi abx fu labs Subjective Subjective min abdominal pain c/o of hunger Objective Last 24 Hour Vital Signs Date Time Temp Pulse Resp B/P Pulse Ox O2 Delivery O2 Flow Rate FiO2 06/16/16 08:00 96.5 75 16 113/57 96 Room Air 06/16/16 04:02 98.8 78 19 107/49 96 Room Air 06/16/16 04:00 63 06/16/16 00:32 98.5 82 20 113/58 98 Room Air 06/16/16 00:00 81 06/15/16 20:06 98 Room Air 06/15/16 20:06 Room Air 06/15/16 20:05 88 20 Nasal Cannula 21 06/15/16 20:00 88 06/15/16 20:00 98.0 80 20 114/49 95 Room Air 06/15/16 16:00 98.0 81 20 118/67 96 Room Air 06/15/16 16:00 96 06/15/16 11:50 103 06/15/16 11:46 98.1 82 20 122/65 95 Nasal Cannula 2.0 Intake and Output 06/15/16 06/16/16 19:00 07:00 Intake Total 650.0 ml 487.5 ml Balance 650.0 ml 487.5 ml Intake Oral 240 ml 150 ml IV Total 410.0 ml 337.5 ml # Voids 2 3 Height (Feet): 5 Height (Inches): 7.00 Weight (Pounds): 123 General Appearance: no apparent distress, alert, thin Cardiovascular: normal rate Respiratory/Chest: normal breath sounds, no respiratory distress Abdominal Exam: normal bowel sounds, non tender, soft, other - incision sites c /d/i Extremities: normal range of motion Navya Pal N.P. Jun 16, 2016 09:39
[2016-06-16 10:25] LABS: BASOPHILS % (AUTO) 0.9 % (0.0-2.0); EOSINOPHILS % (AUTO) 0.2 % (0.0-3.0); LYMPHOCYTES % (AUTO) 32.9 % (20.0-45.0); MEAN CORPUSCULAR HEMOGLOBIN 31.3 PG (27.0-31.0); MEAN CORPUSCULAR HGB CONC 34.7 G/DL (32.0-36.0); MEAN CORPUSCULAR VOLUME 90 FL (80-99); MEAN PLATELET VOLUME 8.9 FL (6.5-10.1); PLATELET COUNT 161 K/UL (150-450); RED BLOOD COUNT 4.49 M/UL (4.70-6.10); RED CELL DISTRIBUTION WIDTH 10.7 % (11.6-14.8); WHITE BLOOD COUNT 9.6 K/UL (4.8-10.8)
[2016-06-16] MEDS: D5 1/2NS w/KCl 20mEq 1,000 ML IV SCH (10:41)
[2016-06-16 10:49] LABS: CRP QUANT 3.1 mg/dL (< 0.5); MAGNESIUM 2.1 mg/dL (1.7-2.5); PHOSPHORUS 4.1 mg/dL (2.5-4.8)
[2016-06-16 10:50] LABS: ALANINE AMINOTRANSFERASE 13 U/L (3-41); ALBUMIN/GLOBULIN RATIO 1.9 (1.0-2.7); ANION GAP 12 (5-15); ASPARTATE AMINO TRANSFERASE 20 U/L (5-40); CARBON DIOXIDE 29 mEQ/L (20-30); CHLORIDE 101 mEQ/L (98-107); CREATININE 1.4 mg/dL (0.7-1.2); GLOMERULAR FILTRATION RATE > 60 mL/min (>60); HEMOLYSIS 5; POTASSIUM 4.1 mEQ/L (3.4-4.9); SODIUM 142 mEQ/L (135-145); TOTAL PROTEIN 5.9 g/dL (6.6-8.7)
--- NOTE | 2016-06-16 10:59 | Infectious Diseases Prog Note ---
Assessment/Plan Assessment/Plan A: 21-year-old M w Acute onset of abdominal pain with radiation to the RLQ SP nausea, vomitus, and chills and fever SP appendectomy leukocytosis , SP Plan : DC zosyn , may DC pt off of AB Rx monitor CBC monitor BMP Gen Sx is following Subjective Constitutional: Denies: anorexia, chills, drenching sweats, fatigue, fever, no symptoms, other Allergies: Coded Allergies: METOCLOPRAMIDE (Verified Allergy, Mild, SOB, 06/14/16) Cultivated Oat Pollen (Unverified Allergy, Unknown, 06/13/16) Uncoded Allergies: POLLENS (Allergy, Unknown, 06/13/16) Subjective feeling better Objective Vital Signs Last 24 Hour Vital Signs Date Time Temp Pulse Resp B/P Pulse Ox O2 Delivery O2 Flow Rate FiO2 06/16/16 08:00 96.5 75 16 113/57 96 Room Air 06/16/16 07:39 97 Nasal Cannula 2.0 28 06/16/16 07:39 Nasal Cannula 2.0 28 06/16/16 07:39 67 20 Nasal Cannula 28 06/16/16 04:02 98.8 78 19 107/49 96 Room Air 06/16/16 04:00 63 06/16/16 00:32 98.5 82 20 113/58 98 Room Air 06/16/16 00:00 81 06/15/16 20:06 98 Room Air 06/15/16 20:06 Room Air 06/15/16 20:05 88 20 Nasal Cannula 21 06/15/16 20:00 88 06/15/16 20:00 98.0 80 20 114/49 95 Room Air 06/15/16 16:00 98.0 81 20 118/67 96 Room Air 06/15/16 16:00 96 06/15/16 11:50 103 06/15/16 11:46 98.1 82 20 122/65 95 Nasal Cannula 2.0 Height (Feet): 5 Height (Inches): 7.00 Weight (Pounds): 123 HEENT: atraumatic Respiratory/Chest: no respiratory distress Cardiovascular: regular rhythm Abdomen: no organomegaly Laboratory Tests Test 06/16/16 09:20 White Blood Count 9.6 K/UL (4.8-10.8) Red Blood Count 4.49 M/UL (4.70-6.10) L Hemoglobin 14.1 G/DL (14.2-18.0) L Hematocrit 40.5 % (42.0-52.0) L Mean Corpuscular Volume 90 FL (80-99) Mean Corpuscular Hemoglobin 31.3 PG (27.0-31.0) H Mean Corpuscular Hemoglobin Concent 34.7 G/DL (32.0-36.0) Red Cell Distribution Width 10.7 % (11.6-14.8) L Platelet Count 161 K/UL (150-450) Mean Platelet Volume 8.9 FL (6.5-10.1) Neutrophils (%) (Auto) 59.0 % (45.0-75.0) Lymphocytes (%) (Auto) 32.9 % (20.0-45.0) Monocytes (%) (Auto) 7.0 % (1.0-10.0) Eosinophils (%) (Auto) 0.2 % (0.0-3.0) Basophils (%) (Auto) 0.9 % (0.0-2.0) Erythrocyte Sedimentation Rate Pending Sodium Level 142 mEQ/L (135-145) Potassium Level 4.1 mEQ/L (3.4-4.9) Chloride Level 101 mEQ/L (98-107) Carbon Dioxide Level 29 mEQ/L (20-30) Anion Gap 12 (5-15) Blood Urea Nitrogen 17 mg/dL (7-23) Creatinine 1.4 mg/dL (0.7-1.2) H Estimat Glomerular Filtration Rate > 60 mL/min (>60) Glucose Level 97 mg/dL (74-106) Calcium Level 9.0 mg/dL (8.6-10.2) Phosphorus Level 4.1 mg/dL (2.5-4.8) Magnesium Level 2.1 mg/dL (1.7-2.5) Total Bilirubin 2.0 mg/dL (0.0-1.2) H Direct Bilirubin Pending Aspartate Amino Transf (AST/SGOT) 20 U/L (5-40) Alanine Aminotransferase (ALT/SGPT) 13 U/L (3-41) Alkaline Phosphatase 52 U/L (40-129) C-Reactive Protein, Quantitative 3.1 mg/dL (< 0.5) H Total Protein 5.9 g/dL (6.6-8.7) L Albumin 3.9 g/dL (3.5-5.2) Globulin 2.0 g/dL Albumin/Globulin Ratio 1.9 (1.0-2.7) Blastomyces Ab Immunodiffusion Pending Cryptococcus Antigen Pending Histoplasma Mycelial Antibody Pending Histoplasma Antibody w Mycelial Ag Pending Histoplasma Antibody with Yeast Ag Pending TB Test (T-Spot) Pending TB Test Nil Control (T-Spot) Pending TB Test Panel A (T-Spot) Pending TB Test Panel B (T-Spot) Pending TB Test Positive Control (T-Spot) Pending Current Medications Medications (Trade) Dose Ordered Sig/Vianney Route PRN Reason Start Time Stop Time Status Last Admin Dose Admin Acetaminophen (Tylenol) 650 mg Q4H PRN RECTAL Mild Pain (Pain Scale 1-3) 06/14/16 11:20 07/14/16 11:19 Albuterol Sulfate (Proventil) 2.5 mg QIDPRN PRN HHN Shortness of Breath 06/14/16 11:20 06/19/16 11:19 06/15/16 04:31 Dextrose/ Electrolytes (D5 0.45%NS W/ KCl 20mEq) 1,000 ml @ 50 mls/hr Q20H IV 06/15/16 13:30 07/15/16 13:29 06/16/16 10:41 Heparin Sodium (Porcine) (Heparin 5000 units/ml) 5,000 units EVERY 12 HOURS SUBQ 06/14/16 21:00 07/14/16 20:59 06/16/16 09:00 Hydromorphone HCl (Dilaudid) 1 mg Q4H PRN IVP For Pain 06/14/16 11:20 06/21/16 11:19 Pantoprazole (Protonix) 40 mg DAILY IVP 06/15/16 09:00 07/15/16 08:59 06/16/16 09:24 Piperacillin Sod/ Tazobactam Sod/ Dextrose (Zosyn/D5W) 110 ml @ 27.5 mls/hr EVERY 8 HOURS IVPB 06/14/16 14:00 06/19/16 13:59 06/16/16 05:53 Senna/Docusate Sodium 1 ea 1 ea TWICE A DAY ORAL 06/14/16 13:00 07/14/16 12:59 06/16/16 09:29 ANNA TORREZ M.D. Jun 16, 2016 10:59
[2016-06-16 11:01] LABS: BILIRUBIN,DIRECT 0.3 mg/dL (0.1-0.3)
[2016-06-16 12:00] VITALS: BP 123/72
--- NOTE | 2016-06-16 12:03 | Diagnostic Imaging Report ---
APPROVED REPORT CPT Code: 16829 Present Symptoms Lower Extremity Pain: Bilateral BILATERAL: Imaging reveals a patent deep venous system bilaterally. There is no evidence of thrombus within the femoral, popliteal or tibial segments. The greater saphenous veins are also within normal limits. Doppler indicates normal spontaneous flow within these segments.
--- NOTE | 2016-06-16 13:49 | Pulmonology Progress Note ---
Assessment/Plan Problems: (1) Interstitial lung disease (2) Pulmonary nodule Assessment/Plan serology for fungal disease HIV ppd TB gold titrate fio2 pt requires less oxygen. apparently responding to steroids, abx were stopped. transfer to med/surg ppd pending f/u serology Subjective ROS Limited/Unobtainable: No Constitutional: Reports: no symptoms HEENT: Repors: no symptoms Respiratory: Reports: no symptoms Allergies: Coded Allergies: METOCLOPRAMIDE (Verified Allergy, Mild, SOB, 06/14/16) Cultivated Oat Pollen (Unverified Allergy, Unknown, 06/13/16) Uncoded Allergies: POLLENS (Allergy, Unknown, 06/13/16) Objective Last 24 Hour Vital Signs Date Time Temp Pulse Resp B/P Pulse Ox O2 Delivery O2 Flow Rate FiO2 06/16/16 12:00 98.2 86 17 123/72 96 Room Air 06/16/16 12:00 84 06/16/16 08:00 68 06/16/16 08:00 96.5 75 16 113/57 96 Room Air 06/16/16 07:39 97 Nasal Cannula 2.0 28 06/16/16 07:39 Nasal Cannula 2.0 28 06/16/16 07:39 67 20 Nasal Cannula 28 06/16/16 04:02 98.8 78 19 107/49 96 Room Air 06/16/16 04:00 63 06/16/16 00:32 98.5 82 20 113/58 98 Room Air 06/16/16 00:00 81 06/15/16 20:06 98 Room Air 06/15/16 20:06 Room Air 06/15/16 20:05 88 20 Nasal Cannula 21 06/15/16 20:00 88 06/15/16 20:00 98.0 80 20 114/49 95 Room Air 06/15/16 16:00 98.0 81 20 118/67 96 Room Air 06/15/16 16:00 96 Intake and Output 06/15/16 06/16/16 18:59 06:59 Intake Total 650.0 ml 487.5 ml Balance 650.0 ml 487.5 ml Intake Oral 240 ml 150 ml IV Total 410.0 ml 337.5 ml # Voids 2 3 General Appearance: WD/WN HEENT: normocephalic, atraumatic Respiratory/Chest: chest wall non-tender, lungs clear Cardiovascular: normal peripheral pulses, normal rate Abdomen: normal bowel sounds, soft, non tender Genitourinary: normal external genitalia Extremities: no clubbing Skin: no ulcers Neurologic/Psychiatric: set up and charger II-XII grossly normal Lymphatic: no groin adenopathy Laboratory Tests 06/16/16 09:20: White Blood Count 9.6, Red Blood Count 4.49L, Hemoglobin 14.1L, Hematocrit 40.5L , Mean Corpuscular Volume 90, Mean Corpuscular Hemoglobin 31.3H, Mean Corpuscular Hemoglobin Concent 34.7, Red Cell Distribution Width 10.7L, Platelet Count 161, Mean Platelet Volume 8.9, Neutrophils (%) (Auto) 59.0, Lymphocytes (%) (Auto) 32.9, Monocytes (%) (Auto) 7.0, Eosinophils (%) (Auto) 0.2, Basophils (%) (Auto) 0.9, Erythrocyte Sedimentation Rate 17H, Sodium Level 142, Potassium Level 4.1, Chloride Level 101, Carbon Dioxide Level 29, Anion Gap 12, Blood Urea Nitrogen 17, Creatinine 1.4H, Estimat Glomerular Filtration Rate > 60, Glucose Level 97, Calcium Level 9.0, Phosphorus Level 4.1, Magnesium Level 2.1, Total Bilirubin 2.0H, Direct Bilirubin 0.3, Aspartate Amino Transf ( AST/SGOT) 20, Alanine Aminotransferase (ALT/SGPT) 13, Alkaline Phosphatase 52, C -Reactive Protein, Quantitative 3.1H, Total Protein 5.9L, Albumin 3.9, Globulin 2.0, Albumin/Globulin Ratio 1.9, Blastomyces Ab Immunodiffusion [Pending], Cryptococcus Antigen [Pending], Histoplasma Mycelial Antibody [Pending], Histoplasma Antibody w Mycelial Ag [Pending], Histoplasma Antibody with Yeast Ag [Pending], TB Test (T-Spot) [Pending], TB Test Nil Control (T-Spot) [Pending] , TB Test Panel A (T-Spot) [Pending], TB Test Panel B (T-Spot) [Pending], TB Test Positive Control (T-Spot) [Pending] Current Medications Medications (Trade) Dose Ordered Sig/Vianney Route PRN Reason Start Time Stop Time Status Last Admin Dose Admin Acetaminophen (Tylenol) 650 mg Q4H PRN RECTAL Mild Pain (Pain Scale 1-3) 06/14/16 11:20 07/14/16 11:19 Albuterol Sulfate (Proventil) 2.5 mg QIDPRN PRN HHN Shortness of Breath 06/14/16 11:20 06/19/16 11:19 06/15/16 04:31 Dextrose/ Electrolytes (D5 0.45%NS W/ KCl 20mEq) 1,000 ml @ 50 mls/hr Q20H IV 06/15/16 13:30 07/15/16 13:29 06/16/16 10:41 Heparin Sodium (Porcine) (Heparin 5000 units/ml) 5,000 units EVERY 12 HOURS SUBQ 06/14/16 21:00 07/14/16 20:59 06/16/16 09:00 Hydromorphone HCl (Dilaudid) 1 mg Q4H PRN IVP For Pain 06/14/16 11:20 06/21/16 11:19 Pantoprazole (Protonix) 40 mg DAILY IVP 06/15/16 09:00 07/15/16 08:59 06/16/16 09:24 Senna/Docusate Sodium 1 ea 1 ea TWICE A DAY ORAL 06/14/16 13:00 07/14/16 12:59 06/16/16 09:29 LARISA BAH Jun 16, 2016 13:49
--- NOTE | 2016-06-16 14:44 | General Surgery Progress Note ---
General Surgery-Progress Note Subjective Symptoms: improved Objective Last 24 Hour Vital Signs Date Time Temp Pulse Resp B/P Pulse Ox O2 Delivery O2 Flow Rate FiO2 06/16/16 12:00 98.2 86 17 123/72 96 Room Air 06/16/16 12:00 84 06/16/16 08:00 68 06/16/16 08:00 96.5 75 16 113/57 96 Room Air 06/16/16 07:39 97 Nasal Cannula 2.0 28 06/16/16 07:39 Nasal Cannula 2.0 28 06/16/16 07:39 67 20 Nasal Cannula 28 06/16/16 04:02 98.8 78 19 107/49 96 Room Air 06/16/16 04:00 63 06/16/16 00:32 98.5 82 20 113/58 98 Room Air 06/16/16 00:00 81 06/15/16 20:06 98 Room Air 06/15/16 20:06 Room Air 06/15/16 20:05 88 20 Nasal Cannula 21 06/15/16 20:00 88 06/15/16 20:00 98.0 80 20 114/49 95 Room Air 06/15/16 16:00 98.0 81 20 118/67 96 Room Air 06/15/16 16:00 96 I&O Intake and Output 06/15/16 06/16/16 18:59 06:59 Intake Total 650.0 ml 487.5 ml Balance 650.0 ml 487.5 ml Intake Oral 240 ml 150 ml IV Total 410.0 ml 337.5 ml # Voids 2 3 Dressing: dry Wound: intact Respiratory: clear Abdomen: soft, flat, non-tender, present bowel sounds Extremities: no tenderness Laboratory Tests Test 06/16/16 09:20 White Blood Count 9.6 K/UL (4.8-10.8) Red Blood Count 4.49 M/UL (4.70-6.10) L Hemoglobin 14.1 G/DL (14.2-18.0) L Hematocrit 40.5 % (42.0-52.0) L Mean Corpuscular Volume 90 FL (80-99) Mean Corpuscular Hemoglobin 31.3 PG (27.0-31.0) H Mean Corpuscular Hemoglobin Concent 34.7 G/DL (32.0-36.0) Red Cell Distribution Width 10.7 % (11.6-14.8) L Platelet Count 161 K/UL (150-450) Mean Platelet Volume 8.9 FL (6.5-10.1) Neutrophils (%) (Auto) 59.0 % (45.0-75.0) Lymphocytes (%) (Auto) 32.9 % (20.0-45.0) Monocytes (%) (Auto) 7.0 % (1.0-10.0) Eosinophils (%) (Auto) 0.2 % (0.0-3.0) Basophils (%) (Auto) 0.9 % (0.0-2.0) Erythrocyte Sedimentation Rate 17 MM/HR (0-15) H Sodium Level 142 mEQ/L (135-145) Potassium Level 4.1 mEQ/L (3.4-4.9) Chloride Level 101 mEQ/L (98-107) Carbon Dioxide Level 29 mEQ/L (20-30) Anion Gap 12 (5-15) Blood Urea Nitrogen 17 mg/dL (7-23) Creatinine 1.4 mg/dL (0.7-1.2) H Estimat Glomerular Filtration Rate > 60 mL/min (>60) Glucose Level 97 mg/dL (74-106) Calcium Level 9.0 mg/dL (8.6-10.2) Phosphorus Level 4.1 mg/dL (2.5-4.8) Magnesium Level 2.1 mg/dL (1.7-2.5) Total Bilirubin 2.0 mg/dL (0.0-1.2) H Direct Bilirubin 0.3 mg/dL (0.1-0.3) Aspartate Amino Transf (AST/SGOT) 20 U/L (5-40) Alanine Aminotransferase (ALT/SGPT) 13 U/L (3-41) Alkaline Phosphatase 52 U/L (40-129) C-Reactive Protein, Quantitative 3.1 mg/dL (< 0.5) H Total Protein 5.9 g/dL (6.6-8.7) L Albumin 3.9 g/dL (3.5-5.2) Globulin 2.0 g/dL Albumin/Globulin Ratio 1.9 (1.0-2.7) Blastomyces Ab Immunodiffusion Pending Cryptococcus Antigen Pending Histoplasma Mycelial Antibody Pending Histoplasma Antibody w Mycelial Ag Pending Histoplasma Antibody with Yeast Ag Pending TB Test (T-Spot) Pending TB Test Nil Control (T-Spot) Pending TB Test Panel A (T-Spot) Pending TB Test Panel B (T-Spot) Pending TB Test Positive Control (T-Spot) Pending Assessment Additional Comments S/P lap appy Plan Additional Comments Per FRANCISCO JAVIER Gonzales Jun 16, 2016 14:44
[2016-06-16 16:00] VITALS: BP 115/71
[2016-06-18 11:15] LABS: CRYPTOCOCCAL ANTIGEN SERUM Negative (Negative)
[2016-06-18 11:36] LABS: NIL (NEG) CONTROL SPOT COUNT 0 (0-9); PANEL A SPOT COUNT 0; PANEL B SPOT COUNT 1; POSITIVE CONTROL SPOT COUNT > 20; T SPOT TB NEGATIVE
--- NOTE | 2016-06-18 11:44 | Discharge Summary ---
Discharge Summary Hospital Course Date of Admission Jun 13, 2016 at 21:23 Date of Discharge Jun 16, 2016 at 21:30 Admitting Diagnosis Appendicitis HPI Juan Alberto Fuentes is a 21 year old male who was admitted on Jun 13, 2016 at 21:23 for Appendicitis Hospital Course [id number] Discharge Discharge Disposition Patient left AMA Discharge Diagnoses: Jennifer Conroy NP Jun 18, 2016 11:44
--- NOTE | 2016-06-18 19:58 | Discharge Summary 2 SIG ---
DATE OF ADMISSION: 06/13/2016 DATE OF DISCHARGE: 06/16/2016 CONSULTANTS: 1. Bebeto Lopez M.D. 2. Patrick Healy M.D. 3. Alexander Madera M.D. BRIEF HOSPITAL COURSE: The patient is a 21-year-old male, who presented to ED complaining of abdominal pain with nausea and vomiting. Pain later on localized to right lower quadrant. On evaluation at ED, CT scan findings confirmed acute appendicitis and the patient underwent an emergent laparoscopic appendectomy by Dr. Lopez. He tolerated procedure well. On postop day #1, the patient desaturated. Pulmonary and ID consult was obtained. The patient was started on IV steroids and was continued on Zosyn. He was worked up for tuberculosis and fungal infection. However, full treatment was not carried out as the patient signed out against medical advice. FINAL DIAGNOSES: 1. Sepsis, etiology unknown. Possible pneumonia abdomen less likely. 2. Acute hypoxemic respiratory failure. 3. Diffuse interstitial lung disease. 4. Acute abdomen secondary to acute appendicitis, status post laparoscopic appendectomy. 5. Noncompliance as the patient signed out against medical advice. Jerad Patterson M.D. I have been assigned to dictate discharge summary on this account and I was not involved in the patient's management. Jennifer Conroy N.P DR: TL JOB#: [id number] CC:
[2016-06-19 17:14] LABS: HISTO AB MYCELIAL Negative (Neg:<1:2); HISTO AB YEAST Negative (Neg:<1:2); HISTOPLASMA MYCELIAL ID AB Negative (Negative)
[2016-06-24 16:13] LABS: BLASTOMYCES AB - ID Negative (Neg:<1:1)
--- NOTE | 2016-07-15 10:05 | Diagnostic Imaging Report ---
Indication: Shortness of breath Technique: CT pulmonary angiogram performed utilizing automated exposure control with intravenous contrast. Axial, sagittal and coronal reconstructions were obtained. 3-D volumetric reconstructions were also performed. CT dose: Total DLP 808 mGycm; CTDI vol 23.4 mGy Comparison: None Findings: There is no pulmonary embolus or aortic dissection. The heart size is normal. No pericardial or pleural effusions are identified. There are groundglass and consolidative opacities throughout the lungs bilaterally. There is trace free air in the right upper abdomen. The osseous structures demonstrate no acute abnormality. Impression: No evidence of pulmonary embolus or aortic dissection. Diffuse patchy bilateral groundglass and consolidative opacities. Pulmonary edema could have this appearance. Superimposed infectious or inflammatory etiologies are also considered. Clinical correlation/followup recommended. Trace free fluid in the partially visualized right upper abdomen may be postsurgical. Clinical correlation recommended. The CT scanner at [facility] is accredited by the [employer] and the scans are performed using protocols designed to limit radiation exposure to as low as reasonably achievable to attain images of sufficient resolution adequate for diagnostic evaluation.
== END 2016-06-16 21:30 | disposition left against medical advice (07) | DRG 853 ==
LOC: EMR 21:18 → EDBEDREQ 21:22 → 3E 21:23 → EDBEDREQ 22:01 → 2E 06-14 10:49
PROC: 0DTJ4ZZ Resection of Appendix, Percutaneous Endoscopic Approach (ICD-10-PCS; principal; 2016-06-14)
DX: A41.9 Sepsis, unspecified organism (principal); J18.9 Pneumonia, unspecified organism; J96.01 Acute respiratory failure with hypoxia; J84.9 Interstitial pulmonary disease, unspecified; K35.80 Unspecified acute appendicitis; Z91.19 Patient's noncompliance with other medical treatment and regimen; J45.909 Unspecified asthma, uncomplicated; Z88.8 Allergy status to other drugs, medicaments and biological substances; R91.1 Solitary pulmonary nodule
CPT/HCPCS: 36415; 71275; 74177; 80048; 80053; 80061; 81003; 82248; 82378; 83036; 83615; 83690; 83735; 84100; 84443; 84484; 85007; 85025; 85379; 85610; 85651; 85730; 86140; 86171; 86580; 86612; 86703; 86850; 86900; 86901; 87070; 87205; 87449; 93970; 94003; 94150; 94640; 94664; 94760; C9399; J2250; J2405; J2710; J2765; J3490